=== PATIENT | male | born 1965 | race Caucasian/White ===

== ENCOUNTER 2017-12-27 16:15 | Inpatient (IN) | payer MEDICARE, OTHER ==
--- NOTE | 2017-12-27 16:46 | ED PDOC ---
Arrival/HPI - General Chief Complaint: Psychiatric Evaluation Time Seen by Provider: 12/27/17 16:25 Historian: Patient - History of Present Illness Narrative History of Present Illness (Text): 12/27/17 16:4 A 52 year old male, whose past medical history includes schizophrenia, presents to the emergency department complaining of auditory hallucinations. Patient admits to drinking alcohol today. Patient denies any other complaints at this time. PMD: Dr. Ewing Past Medical History - Provider Review Nursing Documentation Reviewed: Yes - Infectious Disease Hx of Infectious Diseases: None - Cardiac Hx Cardiac Disorders: No - Pulmonary Hx Respiratory Disorders: No - Neurological Hx Neurological Disorder: No - Psychiatric Hx Schizophrenia: Yes (non compliant) Hx Substance Use: No - Anesthesia Hx Anesthesia: No Family/Social History - Physician Review Nursing Documentation Reviewed: Yes Family/Social History: No Known Family HX Smoking Status: Current Some Days Smoker Hx Alcohol Use: Yes Frequency of alcohol use: Daily Hx Substance Use: No Allergies/Home Meds Allergies/Adverse Reactions: Allergies No Known Allergies Allergy (Verified 12/27/17 18:49) Home Medications: Home Meds Medication Instructions Recorded Confirmed RX: Haloperidol [Haldol] mg PO DAILY 12/27/17 traZODone [trazODONE HYDROCHLORIDE] 100 mg PO HS 12/27/17 12/27/17 Review of Systems - Physician Review All systems were reviewed & negative as marked: Yes - Review of Systems Constitutional: absent: Fevers Psychiatric: Other (auditory hallucinations) Physical Exam Vital Signs Reviewed: Yes Vital Signs Temp Pulse Resp BP Pulse Ox 12/27/17 16:24 98.6 F 92 H 18 146/100 H 98 Temperature: Afebrile Blood Pressure: Normal Pulse: Regular Respiratory Rate: Normal Appearance: Positive for: Well-Appearing, Non-Toxic, Comfortable Pain Distress: None Mental Status: Positive for: Alert and Oriented X 3 - Systems Exam Head: Present: Atraumatic, Normocephalic Pupils: Present: PERRL Extroacular Muscles: Present: EOMI Conjunctiva: Present: Normal Mouth: Present: Moist Mucous Membranes Neck: Present: Normal Range of Motion Respiratory/Chest: Present: Clear to Auscultation, Good Air Exchange. No: Respiratory Distress, Accessory Muscle Use Cardiovascular: Present: Regular Rate and Rhythm, Normal S1, S2. No: Murmurs Abdomen: No: Tenderness, Distention, Peritoneal Signs Back: Present: Normal Inspection Upper Extremity: Present: Normal Inspection. No: Cyanosis, Edema Lower Extremity: Present: Normal Inspection. No: Edema Neurological: Present: GCS=15, CN II-XII Intact, Speech Normal Skin: Present: Warm, Dry, Normal Color. No: Rashes Psychiatric: Present: Alert, Oriented x 3, Normal Insight, Normal Concentration Medical Decision Making ED Course and Treatment: 12/27/17 16:45 Impression: 52 year old male with auditory hallucinations. Physical exam is benign. Plan: -- EKG -- Chest X-ray -- Labs -- Urinalysis -- Reassess and disposition Progress Notes: EKG: Ordered, reviewed, and independently interpreted the EKG. Rate : 87 BPM Rhythm : NSR Interpretation : No ST-segment elevations or depressions, no T-wave inversions, normal intervals. Comparison : No previous EKG for comparison. 12/27/17 17:45 discussed with pmd. pt noted to be with mild tremors librium given. prefers medical admission will observe for etoh w/d. 12/28/17 07:41 - RAD Interpretation Radiology Orders: 12/27/17 16:39 CHEST PORTABLE [RAD] Stat - Scribe Statement The provider has reviewed the documentation as recorded by the Deneenibailin Adams Provider Scribe Attestation: All medical record entries made by the Scribe were at my direction and personally dictated by me. I have reviewed the chart and agree that the record accurately reflects my personal performance of the history, physical exam, medical decision making, and the department course for this patient. I have also personally directed, reviewed, and agree with the discharge instructions and disposition. Disposition/Present on Arrival - Present on Arrival Any Indicators Present on Arrival: No History of DVT/PE: No History of Uncontrolled Diabetes: No Urinary Catheter: No History of Decub. Ulcer: No History Surgical Site Infection Following: None - Disposition Have Diagnosis and Disposition been Completed?: Yes Diagnosis: Schizophrenia, Hepatitis, Alcohol withdrawal Disposition: HOSPITALIZED Disposition Time: 16:00 Patient Problems: Current Active Problems Problem Status Onset Alcohol intoxication Acute Hepatitis Acute Schizophrenia Acute Condition: STABLE
[2017-12-27 16:47] LABS: BASO # 0.01 K/mm3 (0.0-2.0); BASO % 0.1 % (0.0-3.0); EOS % 0.5 % (1.5-5.0); GRAN # 5.66 (1.4-6.5); GRAN % 73.7 % (50.0-68.0); HEMOGLOBIN 16.1 g/dL (14.0-18.0); LYMPH # 0.9 (1.2-3.4); LYMPH % 11.8 % (22.0-35.0); MEAN CORPUSCULAR HEMOGLOBIN 33.4 pg (25.0-35.0); MEAN CORPUSCULAR HGB CONC 35.5 g/dl (31.0-37.0); MEAN PLATELET VOLUME 11.3 fl (7.0-11.0); MONO # 1.1 (0.1-0.6); MONO % 13.9 % (1.0-6.0); RBC 4.82 10^6/uL (3.5-6.1); WHITE BLOOD COUNT 7.7 10^3/uL (4.5-11.0)
[2017-12-27 17:01] LABS: ACETAMINOPHEN < 10.0 ug/ml (10.0-20.0); SALICYLATE < 1 mg/dL (2.0-20.0)
[2017-12-27 17:03] LABS: ALB/GLOB RATIO 1.1 (1.1-1.8); ALBUMIN 4.3 g/dL (3.0-4.8); ALT/SGPT 104 U/L (7-56); AST/SGOT 116 U/L (17-59); BLOOD UREA NITROGEN 3 mg/dL (7-21); GFR NON-AFRICAN AMERICAN > 60
--- NOTE | 2017-12-27 17:12 | RAD ---
Date of service: 12/27/2017 HISTORY: psych COMPARISON: No prior. FINDINGS: LUNGS: The lungs are well inflated and clear. PLEURA: No pleural effusions or pneumothorax. CARDIOVASCULAR: The heart is normal in size. No aortic atherosclerotic calcification present. OSSEOUS STRUCTURES: Within normal limits for the patient's age. VISUALIZED UPPER ABDOMEN: Normal. OTHER FINDINGS: None. IMPRESSION: No active pulmonary disease.
[2017-12-27 18:01] LABS: PH,URINE 6.5 (4.7-8.0); URINE BILIRUBIN NEGATIVE (NEGATIVE); URINE BLOOD NEGATIVE (NEGATIVE); URINE GLUCOSE (UA) NEGATIVE (NEGATIVE); URINE LEUKOCYTE ESTERASE NEGATIVE Leu/uL (NEGATIVE); URINE PROTEIN NEGATIVE mg/dL (<30 mg/dL); URINE UROBILINOGEN 0.2 E.U./dL (<1 E.U./dL)
[2017-12-27 18:02] LABS: URINE APPEARANCE CLEAR (CLEAR); URINE COLOR LIGHT YELLOW (YELLOW)
[2017-12-27 18:18] LABS: BARBITURATES, UR NEGATIVE (NEGATIVE)
[2017-12-27 18:38] LABS: BENZODIAZEPINES, UR NEGATIVE (NEGATIVE); OPIATES, UR NEGATIVE (NEGATIVE); PHENCYCLIDINE, UR NEGATIVE (NEGATIVE)
[2017-12-27] MEDS ORDERED: Multivitamin (MVI) 10 ML, Thiamine 100 MG, Folic Acid 1 MG in Sodium Chloride 0.9% 1,00... IV ONE (19:24)
[2017-12-27 20:49] VITALS: BMI 33.3
[2017-12-27] MEDS ORDERED: Pneumococcal 23-Valent Vaccine IM ONE (20:49)
[2017-12-27] MEDS ORDERED: Influenza Vaccine 60 mcg/0.5 mL SYR (4YR UP) IM ONE (20:49)
[2017-12-28] MEDS ORDERED: DiphenhydrAMINE 50 mg/ml Inj IVP ONE (00:21)
[2017-12-28 05:47] LABS: TROPONIN I < 0.01 ng/mL
[2017-12-28 05:52] LABS: ALB/GLOB RATIO 1.1 (1.1-1.8); ALBUMIN 3.6 g/dL (3.0-4.8); ALT/SGPT 105 U/L (7-56); AST/SGOT 105 U/L (17-59); BLOOD UREA NITROGEN 6 mg/dL (7-21); CALCIUM 8.8 mg/dL (8.4-10.5); GFR NON-AFRICAN AMERICAN > 60
[2017-12-28] MEDS: Pantoprazole 20 mg EC Tab PO SCH (06:35)
[2017-12-28 08:21] LABS: HDL CHOLESTEROL 100 mg/dL (29-60)
[2017-12-28 08:22] LABS: IRON 196 ug/dL (45-180)
[2017-12-28 08:32] LABS: % IRON SATURATION 71 % (20-55); LDL CHOLESTEROL 63 mg/dL (0-129); TOTAL IRON BINDING CAPACITY 275 ug/dL (261-462)
--- NOTE | 2017-12-28 09:51 | CARD ---
APPROVED REPORT Date of service: 12/27/2017 EKG Measurement Heart [id number] [id number] <Conclusion> Normal sinus rhythm Normal ECG
--- NOTE | 2017-12-28 10:14 | CARD ---
APPROVED REPORT Date of service: 12/28/2017 EKG Measurement Heart [id number] [id number] <Conclusion> Normal sinus rhythm Mild ST elevation lead 1. Suggest clinical correlation.
[2017-12-28 12:38] LABS: FOLATE > 20.0 ng/mL
--- NOTE | 2017-12-28 14:20 | HP ---
12/27/17 CHIEF COMPLAINT: Hallucinations, delusions, fatigue, tired. HISTORY OF PRESENT ILLNESS: The patient is a 52-year-old, my private patient, who has a past medical history of schizophrenia, was drinking alcohol actually. According to sister, he went to [facility] a couple of days ago to get help, but technology that he has active auditory hallucinations and delusions,and feeling very fatigued and tired. He wants to quit drinking. The patient came to emergency room with the drinking problem. The patient denies any other complaints, no fever, no chills, no nausea, vomiting, or diarrhea, no hematuria, no hematochezia. We admitted the patient, started on Librium and Ativan, seen by psychiatrist. PAST MEDICAL HISTORY: Schizophrenia, noncompliant. FAMILY HISTORY: Father and mother, noncontributory. HABITS: Never smoked. No drugs. Ethanol, yes. HOME MEDICATIONS: Reviewed by me, no medications. ALLERGIES: THE PATIENT IS NOT ALLERGIC WITH ANY MEDICATIONS. REVIEW OF SYSTEMS: The patient was seen and examined at the bedside, looking comfortable, started to get anxious, fatigued and tired. No fever. No chills. No nausea, vomiting, or diarrhea. No hematuria or hematochezia. No swelling of the legs. No chest pain. No palpitations. PHYSICAL EXAMINATION: VITAL SIGNS: Temperature 98.6, pulse 92, respiratory rate 18, blood pressure 146/100, pulse oximetry 98. HEENT: Head normocephalic and atraumatic. Eyes, PERRLA. Extraocular muscles intact. Conjunctivae clear. Nose patent. Mucous membranes are moist. NECK: Supple. No carotid bruit. No JVD or thyromegaly. CHEST: Bilaterally symmetrical. HEART: S1 and S2 positive. LUNGS: Clear to auscultation. ABDOMEN; Soft and nontender. No organomegaly. EXTREMITIES: No edema. No cyanosis. NEUROLOGIC: The patient is awake and alert. Moving all four extremities. No focal deficits. LABORATORY DATA: Alcohol level is 185. White blood cell count 7.7, hemoglobin 15.1, hematocrit 35.3, and platelets 110. Sodium 136, potassium 4.0, BUN 20 and creatinine 0.8. AST 115 and ALT 104. ASSESSMENT AND PLAN: The patient is a 52-year-old male with thrombocytopenia; hypoalbuminemia; abnormal liver function tests, abnormal liver function tests could be due to alcohol and he should be checked for hepatitis; ethanol abuse; history of hallucinations; delusions; schizophrenia with alcohol addiction. We will call Psychiatry. Repeat labs. We will follow up. Gi Ewing MD MTDAlec
[2017-12-28 18:25] LABS: TROPONIN I < 0.01 ng/mL
[2017-12-28] MEDS: Folic Acid 1 MG, Thiamine 100 MG, Multivitamin (MVI) 10 ML in Dextrose 5% In Water 1,00... IV SCH (21:39)
--- NOTE | 2017-12-28 23:24 | PN ---
DATE: 12/28/2017 SUBJECTIVE: The patient is a 52-year-old male. The patient was seen and examined at the bedside on 12/28/2017. Looking comfortable except tremulous. Early in the morning, he complained about chest pain and abdominal pain, but when I did examination, pain was gone. PHYSICAL EXAMINATION: VITAL SIGNS: Temperature 97.9, pulse 87, blood pressure 129/89, pulse oximetry noted . HEENT: Head: Normocephalic and atraumatic. Eyes: PERRLA. Extraocular muscles intact. Conjunctivae clear. Nose patent. Mucous membranes are moist. NECK: Supple. No carotid bruit, JVD, or thyromegaly. CHEST: Bilaterally symmetrical. HEART: S1 and S2 positive. LUNGS: Clear to auscultation. ABDOMEN: Soft. Bowel sounds positive. No organomegaly. EXTREMITIES: No edema. No cyanosis. NEUROLOGIC: The patient is awake and alert. Moving all four extremities. No focal deficits. MEDICATIONS: Ativan, Cogentin, trazodone, Haldol, Librium, and Protonix. LABORATORY DATA: White blood cell 7.7, hemoglobin 15.1, hematocrit 45.3, platelets 101. Sodium 137, potassium 3.6, BUN 6, creatinine 0.8, glucose 98. ASSESSMENT AND PLAN: Mr. Sang Saucedo is a 52-year-old male with leukopenia; hyperchloremia; abnormal liver function test, trending down; came with ethanol abuse; history of schizophrenia; very noncompliant; history of drinking; hypoalbuminemia; still hallucinating and delusional. Psychiatry is on the case. Plan to prevent delirium tremens. Gastric and deep venous thrombosis prophylaxes. Repeat labs. We will follow up. Gi Ewing MD MTDD
[2017-12-29 01:03] LABS: TROPONIN I < 0.01 ng/mL
[2017-12-29 04:37] VITALS: RESP 20
[2017-12-29] MEDS: Pantoprazole 20 mg EC Tab PO SCH (06:08)
[2017-12-29] MEDS: Folic Acid 1 MG, Thiamine 100 MG, Multivitamin (MVI) 10 ML in Dextrose 5% In Water 1,00... IV SCH ×2 (07:02→17:44)
[2017-12-29 07:27] LABS: HEMOGLOBIN 15.9 g/dL (14.0-18.0); MEAN CELL VOLUME 96.5 fl (80.0-105.0); MEAN CORPUSCULAR HEMOGLOBIN 32.9 pg (25.0-35.0); MEAN PLATELET VOLUME 12.1 fl (7.0-11.0); RBC 4.84 10^6/uL (3.5-6.1); RED CELL DISTRIBUTION WIDTH 14.5 % (11.5-14.5); WHITE BLOOD COUNT 6.5 10^3/uL (4.5-11.0)
[2017-12-29 08:31] LABS: BLOOD UREA NITROGEN 13 mg/dL (7-21); CALCIUM 9.2 mg/dL (8.4-10.5); GFR NON-AFRICAN AMERICAN > 60
--- NOTE | 2017-12-29 09:34 | CP.PCM.CON ---
<Galdino Alvarado - Last Filed: 12/29/17 11:53> History of Present Illness - History of Present Illness History of Present Illness: PGY-2 GI consult note for Dr Stauffer Mr Saucedo is a 52 year old female with a PMHx of schizophrenia (non-compliant with medications) who presented to the ED for active auditory hallucinations, delusions and fatigue. The patient had been drinking alcohol every day for the past 4 months - he stated he drinks 6 beers per day. He's had diarrhea for the past few days (no blood). He stated there are plans for him to go to rehab after he leaves here. The patient denied fever, chills, nausea, emesis. PMD: Dr. Ewing PMHx: schizophrenia (non-compliant with medications) PSHx: left knee surgery for torn tendon SocialHx: smokes 1/2 pack per day, 6 beers daily for past 4 months, denies illicits, Allergies: NKA FamHx: denies hx of colon cancer Review of Systems - Constitutional Constitutional: absent: Chills, Fever - EENT Eyes: absent: Change in Vision - Cardiovascular Cardiovascular: Chest Pain at Rest - Respiratory Respiratory: absent: Cough - Gastrointestinal Gastrointestinal: Abdominal Pain. absent: Change in Bowel Habits, Diarrhea - Genitourinary Genitourinary: absent: Dysuria - Musculoskeletal Musculoskeletal: Back Pain - Hematologic/Lymphatic Hematologic: absent: Easy Bleeding Past Patient History - Infectious Disease Hx of Infectious Diseases: None - Past Social History Smoking Status: Current Some Days Smoker - CARDIAC Hx Cardiac Disorders: No - PULMONARY Hx Respiratory Disorders: No - NEUROLOGICAL Hx Neurological Disorder: No - HEENT Hx HEENT Problems: No - RENAL Hx Chronic Kidney Disease: No - ENDOCRINE/METABOLIC Hx Endocrine Disorders: No - HEMATOLOGICAL/ONCOLOGICAL Hx Blood Disorders: No - INTEGUMENTARY Hx Dermatological Problems: No - MUSCULOSKELETAL/RHEUMATOLOGICAL Hx Musculoskeletal Disorders: Yes (L KNEE ARTHROSCOPY) Hx Falls: Yes Hx Unsteady Gait: Yes (CANE) - GASTROINTESTINAL Hx Gastrointestinal Disorders: No - GENITOURINARY/GYNECOLOGICAL Hx Genitourinary Disorders: No - PSYCHIATRIC Hx Schizophrenia: Yes (non compliant) Hx Substance Use: No - SURGICAL HISTORY Hx Surgeries: Yes (L KNEE ARHTROSCOPIC SX.) - ANESTHESIA Hx Anesthesia: No Meds Allergies/Adverse Reactions: Allergies Allergy/AdvReac Type Severity Reaction Status Date / Time No Known Allergies Allergy Verified 12/27/17 18:49 - Medications Medications: Current Medications Benztropine Mesylate (Cogentin) 1 mg PO HS [facility] Last Admin: 12/28/17 21:38 Dose: 1 mg Chlordiazepoxide (Librium) 25 mg PO Q8 [facility]; Protocol Last Admin: 12/29/17 06:08 Dose: 25 mg Haloperidol (Haldol) 3 mg PO AMHS [facility]; Protocol Last Admin: 12/28/17 21:40 Dose: 3 mg Folic Acid 1 mg/ Thiamine HCl 100 mg/ Multivitamins/Vitamin C 10 ml/ Dextrose 1,011.2 mls @ 100 mls/hr IV .Q10H7M [facility] Last Admin: 12/29/17 07:02 Dose: 100 mls/hr Lorazepam (Ativan) 1 mg IVP Q6H PRN; Protocol PRN Reason: Anxiety Pantoprazole Sodium (Protonix Ec Tab) 20 mg PO 0600 [facility] Last Admin: 12/29/17 06:08 Dose: 20 mg Thiamine HCl (Vitamin B1 Tab) 100 mg PO DAILY [facility] Trazodone HCl (Desyrel) 50 mg PO HS [facility] Last Admin: 12/28/17 21:39 Dose: 50 mg Physical Exam - Constitutional Appears: Well, Non-toxic, No Acute Distress - Head Exam Head Exam: ATRAUMATIC, NORMAL INSPECTION - Eye Exam Eye Exam: EOMI, Normal appearance, PERRL. absent: Scleral icterus - ENT Exam ENT Exam: Mucous Membranes Moist - Cardiovascular Exam Cardiovascular Exam: REGULAR RHYTHM, +S1, +S2. absent: JVD, Systolic Murmur - GI/Abdominal Exam GI & Abdominal Exam: Normal Bowel Sounds, Soft, Tenderness. absent: Distended, Firm, Guarding - Extremities Exam Extremities exam: Positive for: calf tenderness, normal inspection. Negative for: normal capillary refill - Neurological Exam Neurological exam: Alert, Oriented x3 Additional comments: + asterixes - Skin Skin Exam: Normal Color, Warm Results - Vital Signs Recent Vital Signs: Last Vital Signs Temp 97.7 F 12/29/17 06:00 Pulse 65 12/29/17 06:00 Resp 20 12/29/17 06:00 BP 132/92 H 12/29/17 06:00 Pulse Ox 96 12/29/17 06:00 - Labs Result Diagrams: 12/29/17 07:00 12/29/17 07:00 Labs: Laboratory Results - last 24 hr 12/28/17 12/28/17 12/28/17 07:30 07:30 17:35 WBC RBC Hgb Hct MCV MCH MCHC RDW Plt Count MPV Sodium Potassium Chloride Carbon Dioxide Anion Gap BUN Creatinine Est GFR ( Amer) Est GFR (Non-Af Amer) Random Glucose Hemoglobin A1c 5.2 Calcium Lactate Dehydrogenase 445 Total Creatine Kinase 75 Troponin I < 0.01 Vitamin B12 561 Folate > 20.0 TSH 3rd Generation 12/28/17 12/29/17 12/29/17 23:55 07:00 07:00 WBC 6.5 RBC 4.84 Hgb 15.9 Hct 46.7 MCV 96.5 MCH 32.9 MCHC 34.0 RDW 14.5 Plt Count 93 L MPV 12.1 H Sodium 139 Potassium 3.8 Chloride 107 Carbon Dioxide 23 Anion Gap 13 BUN 13 Creatinine 0.9 Est GFR ( Amer) > 60 Est GFR (Non-Af Amer) > 60 Random Glucose 97 Hemoglobin A1c Calcium 9.2 Lactate Dehydrogenase 384 Total Creatine Kinase 63 Troponin I < 0.01 Vitamin B12 Folate TSH 3rd Generation 12/29/17 07:00 WBC RBC Hgb Hct MCV MCH MCHC RDW Plt Count MPV Sodium Potassium Chloride Carbon Dioxide Anion Gap BUN Creatinine Est GFR ( Amer) Est GFR (Non-Af Amer) Random Glucose Hemoglobin A1c Calcium Lactate Dehydrogenase Total Creatine Kinase Troponin I Vitamin B12 Folate TSH 3rd Generation 2.78 Assessment & Plan - Assessment and Plan (Free Text) Plan: Mr Saucedo is a 52 year old female with a PMHx of schizophrenia (non-compliant with medications) who presented to the ED for active auditory hallucinations, delusions and fatigue. The patient had been drinking alcohol prior to arrival. GI has been consulted for elevated LFTs and abdominal pain: Elevated LFTs -patient stated he had a colonoscopy [address] Rasmussen however no records seen in chart -AST/ALT on admission: 116/104 -alcohol level on admission elevated 185 -abdominal pain and elevated LFTs due to recent alcohol ingestion -currently on librium taper -f/u hepatitis panel, lipase Prior GI procedures: -EGD in 07/[address] Lobo - normal esophagus, no duodenum, large amount of food in stomach Case discussed with Dr Stauffer. <Lydia Stauffer V - Last Filed: 12/29/17 22:52> Meds - Medications Medications: Current Medications Benztropine Mesylate (Cogentin) 1 mg PO HS [facility] Last Admin: 12/28/17 21:38 Dose: 1 mg Chlordiazepoxide (Librium) 25 mg PO Q8 [facility]; Protocol Last Admin: 12/29/17 13:45 Dose: 25 mg Folic Acid (Folic Acid) 1 mg PO DAILY [facility] Haloperidol (Haldol) 5 mg PO AMHS [facility]; Protocol Folic Acid 1 mg/ Thiamine HCl 100 mg/ Multivitamins/Vitamin C 10 ml/ Dextrose 1,011.2 mls @ 100 mls/hr IV .Q10H7M [facility] Stop: 12/30/17 00:50 Last Admin: 12/29/17 17:44 Dose: 100 mls/hr Lorazepam (Ativan) 1 mg IVP Q6H PRN; Protocol PRN Reason: Anxiety Last Admin: 12/29/17 17:55 Dose: 1 mg Multivitamins (Thera Tab) 1 tab PO DAILY [facility] Pantoprazole Sodium (Protonix Ec Tab) 20 mg PO 0600 [facility] Last Admin: 12/29/17 06:08 Dose: 20 mg Paroxetine HCl (Paxil) 10 mg PO DAILY [facility] Thiamine HCl (Vitamin B1 Tab) 100 mg PO DAILY [facility] Last Admin: 12/29/17 10:16 Dose: 100 mg Trazodone HCl (Desyrel) 50 mg PO HS [facility] Last Admin: 12/28/17 21:39 Dose: 50 mg Results - Vital Signs Recent Vital Signs: Last Vital Signs Temp 98.7 F 12/29/17 17:39 Pulse 74 12/29/17 17:39 Resp 20 12/29/17 17:39 BP 126/84 12/29/17 17:39 Pulse Ox 95 12/29/17 17:39 - Labs Result Diagrams: 12/29/17 07:00 12/29/17 07:00 Labs: Laboratory Results - last 24 hr 12/28/17 12/29/17 12/29/17 23:55 07:00 07:00 WBC 6.5 RBC 4.84 Hgb 15.9 Hct 46.7 MCV 96.5 MCH 32.9 MCHC 34.0 RDW 14.5 Plt Count 93 L MPV 12.1 H Sodium 139 Potassium 3.8 Chloride 107 Carbon Dioxide 23 Anion Gap 13 BUN 13 Creatinine 0.9 Est GFR ( Amer) > 60 Est GFR (Non-Af Amer) > 60 Random Glucose 97 Calcium 9.2 Lactate Dehydrogenase 384 Total Creatine Kinase 63 Troponin I < 0.01 Amylase Lipase TSH 3rd Generation Hepatitis A IgM Ab Hep Bs Antigen Hep B Core IgM Ab Hepatitis C Antibody 12/29/17 12/29/17 12/29/17 07:00 07:00 07:00 WBC RBC Hgb Hct MCV MCH MCHC RDW Plt Count MPV Sodium Potassium Chloride Carbon Dioxide Anion Gap BUN Creatinine Est GFR ( Amer) Est GFR (Non-Af Amer) Random Glucose Calcium Lactate Dehydrogenase Total Creatine Kinase Troponin I Amylase 63 Lipase 133 TSH 3rd Generation 2.78 Hepatitis A IgM Ab Negative Hep Bs Antigen Negative Hep B Core IgM Ab Negative Hepatitis C Antibody Negative Attending/Attestation - Attestation I have personally seen and examined this patient.: Yes I have fully participated in the care of the patient.: Yes I have reviewed all pertinent clinical information: Yes Notes (Text): This is an addendum to GI consult report dictated by the Steward/Stewardess Room.The patient was seen and evaluated earlier. Medical records, lab studies, imagings were reviewed. Last 24 hours events reviewed. Agreed with the above treatment plan as outlined in Steward/Stewardess Room 's notes with the addition of the following Patient feels slightly better Abdomen soft Minimal tenderness in epigastric area on deep palpation Long history of alcohol use will followup LFT and hb Advised to avoid alcohol 12/29/17 22:50
[2017-12-29 11:01] LABS: AMYLASE 63 U/L (35-125); LIPASE 133 U/L (23-300)
--- NOTE | 2017-12-29 12:21 | CON ---
DATE OF CONSULTATION: 12/28/2016 HISTORY OF PRESENT ILLNESS: The patient is a 52-year-old single male with a history of depression, hallucinations, alcohol dependency, prior admission at [facility] about a year ago, currently in treatment with Dr. Martinez for psychiatric symptoms and prescribed trazodone and Haldol, unknown doses, who is admitted to the medical floor after he presented to the ER complaining of auditory hallucinations in context of continued drinking. PSYCHIATRIC HISTORY: The patient reported continued hallucinations on the unit as well as depression. Specifically, he indicated that he was hearing voices that stated they are going to kill him. He has been restless and anxious on the unit and appears to be anxious and depressed when I visited with him at bedside this morning. The patient is oriented to month and year and location and circumstances. He admits to drinking about six beers daily and has a history of withdrawal DTs. However, the patient does indicate that he hallucinates whether he is in withdrawal or intoxicated. The patient also indicates that he has been compliant with his medications prescribed by Dr. Martinez, which include trazodone and Haldol, however, does not know the dosage or the frequency. He has been depressed because of his drinking; however, he denies any other stressor at this time. Denies any drug use. Endorses low energy, fatigue, helplessness, hopelessness and increased suicidal thoughts in the past, but denies having any active thoughts at this time. He is interested in a psychiatric admission once he is medically cleared. He has been calm and cooperative with staff members thus far and then generally remains predictable in this regard. Responses are consistent and generally coherent and he does not appear to respond to internal stimuli during my questioning and does not appear to be overly paranoid either. Insight and judgment are considered to be fair. Vital signs and labs reviewed by the provider. RELEVANT PSYCHIATRIC MEDICATIONS: The only medication started by the patient appears to be Librium 25 mg every 8 hours and Ativan 0.5 mg IV every 6 hours p.r.n. PSYCHIATRIC HISTORY: The patient reports that he was hospitalized at [facility] a year ago for similar symptoms. He reports a history of about seven prior psych hospitalizations and prior suicides, but however does not provide any more details. The patient reports that he has been seeing a psychiatrist, Dr. Martinez, in [place] and being prescribed trazodone and Haldol and reports compliance, however, does not know the dose or frequency. SOCIAL HISTORY: The patient was born and raised in [place]. He is single. He has 3 kids. He lives by himself. He does not work because of disability. He has a long history of alcoholism and currently is being . Denies any drug abuse. Does have a history of withdrawal tremors. IMPRESSION: Major depressive disorder; psychotic symptoms, affective; alocohol use disorder, severe; psychotic disorder. RECOMMENDATIONS: At this time, I will start trazodone for him 50 mg h.s. to help with sleep and Haldol for him at 3 mg a.m. and h.s. We will continue with Ativan and Librium, already written for the patient. Psychiatry will continue to follow up the patient. He is going to find himself into the psychiatry unit once he is medically cleared. Brook Stewart MD
--- NOTE | 2017-12-29 17:14 | CON ---
DATE: 12/29/2017 CARDIOLOGY CONSULTATION HISTORY: The patient is a 52-year-old male, who presented with chest pain, abdominal pain, and diffuse body aches after an alcoholic binge. PAST MEDICAL HISTORY: The patient's past medical history is notable for history of active smoker. In addition, he has a history of schizophrenia, in which he is questionably compliant with his medications. No previous cardiac history is noted. Currently, the patient has no acute symptoms. He denies shortness of breath. SOCIAL HISTORY: He is an active smoker. REVIEW OF SYSTEMS: A 14-point review of systems does not add any additional symptoms than above. PHYSICAL EXAMINATION: VITAL SIGNS: Blood pressure is 132/92, heart rate is in the 60s. NECK: Negative JVD. LUNGS: Without rales. HEART: Reveals S1, S2. EXTREMITIES: Without edema. LABORATORY DATA: Reveals an EKG that is unremarkable. Troponins are negative x2. BUN and creatinine are unremarkable. His hemoglobin is 15.9. IMPRESSION: 1. Atypical chest pain associated with abdominal pain. 2. Alcoholic binge. 3. History of schizophrenia. 4. Probable chronic obstructive pulmonary disease. He is an active smoker. PLAN: Given these findings, there is no evidence for acute coronary syndrome. We will discontinue telemetry today. We will obtain an amylase to rule out pancreatitis as a cause of his symptoms given his alcoholic history. In addition, we will obtain an echocardiogram to evaluate LV function. Caleb Cochran MD
[2017-12-29 18:29] LABS: HEPATITIS B SURFACE AG Negative (NEGATIVE)
[2017-12-29 18:34] LABS: HEPATITIS A IGM NEGATIVE (NEGATIVE); HEPATITIS B CORE AB NEGATIVE (NEGATIVE)
[2017-12-29 18:46] LABS: HEPATITIS C ANTIBODY NEGATIVE (NEGATIVE)
--- NOTE | 2017-12-29 23:43 | CON ---
DATE: 12/29/2017 HISTORY OF PRESENT ILLNESS: The patient is a 52-year-old male with a history of schizophrenia as well as delusions and alcohol abuse, who is currently being treated medically for alcohol withdrawal in the context of auditory hallucinations. I met with the patient at the bedside yesterday and again this morning. The patient appears to be a little bit more oriented today; he knows the month and the year and he knows his location. He is reporting that his auditory hallucinations have improved since yesterday, since the initiation of Haldol, which he is tolerating very well in the unit. However, he continues to have them and these are paranoid hallucinations, people telling him that they are going to kill him and his family. Of note, he has no thoughts of harming anybody or harming himself, although he is depressed and he reports that he feels hopeless at times. Regarding his hallucinations and his alcohol use, he reports that he has hallucinations outside the context of drinking alcohol and if these are incrementing, then he cannot think anything that makes him better or worse. He does not appear to be responding to internal stimuli, but does appear quite preoccupied during my visit with him this morning and there does appear to be some thought blocking as well. Anxiety seems to be under control. Again, he denies any suicidal thoughts or thoughts to harm others. He does appear a little guarded. He is agreeable to starting an antidepressant as well as continue Trazodone at night and increasing Haldol for persistent hallucinations. Insight and judgment are considered to be fair. Vital signs and labs are reviewed. Relevant medications psychiatrically, Cogentin 1 mg at bedtime, Librium 25 mg p.o. every 8 hours, Haldol 3 mg a.m. and at bedtime, Ativan 1 mg IV every 6 hours p.r.n., and Trazodone 50 mg p.o. at bedtime. IMPRESSION: Alcohol abuse, substance-induced mood disorder, substance-induced psychotic disorder, major depressive disorder that has been moderate to severe with psychotic features, rule out schizoaffective disorder, and improving delirium. RECOMMENDATIONS: 1. We will increase Haldol to 5 mg a.m. and at bedtime with Cogentin 1 mg at bedtime for EPS prophylaxis. If the patient still experiences auditory hallucination, an increase of his medication will likely be beneficial. 2. We will start Paxil 2 mg daily for the patient's bouts of depression. 3. We will continue with Trazodone 50 mg at bedtime to help with depression and also to help with sleep. 4. We will continue with Librium 25 mg p.o. every 8 hours for alcohol withdrawal, plan to taper as tolerated as well as will add Ativan 1 mg IV every 6 hours p.r.n. 5. Psychiatry will continue to follow up with the patient as he is medically stabilized. He is agreeable to sign into the psychiatry unit once he is medically cleared and on a voluntary basis for further psychiatric stabilization and optimization. Brook Stewart MD
--- NOTE | 2017-12-30 03:40 | PN ---
DATE: 12/29/2017 SUBJECTIVE: Patient is a 52-year-old male. Patient was seen and examined at the bedside on 12/29/2017, looking comfortable, but still tremulous. No fever, no chills. No nausea, vomiting, or diarrhea. Just having fatigue and tired. No more chest pain. No hematuria or hematochezia. PHYSICAL EXAMINATION: VITAL SIGNS: Temperature 98.6, blood pressure 130/90, heart rate 60, respiratory rate 20. HEENT: Head normocephalic and atraumatic. Eyes, PERRLA. Extraocular muscles intact. Conjunctivae clear. Nose patent. Mucous membrane moist. NECK: Supple. No carotid bruit. No JVD or thyromegaly. CHEST: Bilaterally symmetrical. HEART: S1, S2 positive. LUNGS: Clear to auscultation. ABDOMEN: Soft. Bowel sounds present. No organomegaly. EXTREMITIES: No edema. No cyanosis. NEUROLOGIC: Patient is awake and alert. Moving all four extremities. No focal deficits. MEDICATIONS: Ativan, Cogentin, trazodone, multivitamins, folic acid, Haldol, Librium, Paxil, Protonix, vitamin B1. LABORATORY DATA: White blood cells 6.5, hemoglobin 15.9, hematocrit 46.7, platelets 93. Sodium 139, potassium 3.9, BUN 13, creatinine 0.9, glucose 97, hemoglobin A1c 5.6, calcium 9.2. ASSESSMENT AND PLAN: Mr. Sang Saucedo, 52-year-old male with history of ethanol abuse, came in the hospital with delirium, hallucinations, and started chest pain, seen by the gas worker. According to him, patient has atypical chest pain associated with abdominal pain, alcoholic binging, history of schizophrenia, probably chronic obstructive pulmonary disease. He is an active smoker. There is no evidence of acute coronary syndrome. Dr. Caleb Cochran discontinued the telemetry. Rule out pancreatitis. He ordered echocardiography to see patient's cardiac workup. Seen by the GI. Patient is very noncompliant with his schizophrenia medication. Still has auditory hallucinations, delusion, and fatigue. Abnormal liver function test. Alcohol level on admission was 185. Abdominal pain may be due to elevated liver function tests due to his alcohol ingestion. Patient is taking tapering dose of Librium and Ativan. Seen by the psychiatrist also. Gastrointestinal and deep vein thrombosis prophylaxes. According to Dr. Brook Stewart, as and when patient will get medically stabilized, they will take patient to the Psychiatry. Actually patient is getting medically stabilized. Repeat labs. We will follow up. Gi Ewing MD
--- NOTE | 2017-12-30 08:31 | CP.PCM.PN ---
<Galdino Alvarado - Last Filed: 12/30/17 10:47> Subjective - Date & Time of Evaluation Date of Evaluation: 12/30/17 Time of Evaluation: 08:28 - Subjective Subjective: PGY-[address] note for Dr Stauffer. Overnight patient was tremulous - ativan was given. This morning patient was resting comfortable. Denied abd pain, nausea, emesis. Tolerating diet. He understood sx due to his alcohol consumption. Objective - Vital Signs/Intake and Output Vital Signs (last 24 hours): Temp Pulse Resp BP Pulse Ox 98.7 F 74 20 126/84 95 12/29/17 17:39 12/29/17 17:39 12/29/17 17:39 12/29/17 17:39 12/29/17 17:39 - Medications Medications: Current Medications Benztropine Mesylate (Cogentin) 1 mg PO HS [facility] Last Admin: 12/29/17 23:56 Dose: 1 mg Chlordiazepoxide (Librium) 25 mg PO Q8 [facility]; Protocol Last Admin: 12/29/17 23:57 Dose: 25 mg Folic Acid (Folic Acid) 1 mg PO DAILY [facility] Haloperidol (Haldol) 5 mg PO AMHS [facility]; Protocol Last Admin: 12/29/17 23:56 Dose: 5 mg Lorazepam (Ativan) 1 mg IVP Q6H PRN; Protocol PRN Reason: Anxiety Last Admin: 12/29/17 17:55 Dose: 1 mg Multivitamins (Thera Tab) 1 tab PO DAILY [facility] Pantoprazole Sodium (Protonix Ec Tab) 20 mg PO 0600 [facility] Last Admin: 12/29/17 06:08 Dose: 20 mg Paroxetine HCl (Paxil) 10 mg PO DAILY [facility] Thiamine HCl (Vitamin B1 Tab) 100 mg PO DAILY [facility] Last Admin: 12/29/17 10:16 Dose: 100 mg Trazodone HCl (Desyrel) 50 mg PO HS [facility] Last Admin: 12/29/17 23:56 Dose: 50 mg - Labs Labs: 12/29/17 07:00 12/29/17 07:00 - Additional Findings Additional findings: - Constitutional Appears: Well, Non-toxic, No Acute Distress - Head Exam Head Exam: ATRAUMATIC, NORMAL INSPECTION - Eye Exam Eye Exam: EOMI, Normal appearance, PERRL. absent: Scleral icterus - ENT Exam ENT Exam: Mucous Membranes Moist - Cardiovascular Exam Cardiovascular Exam: REGULAR RHYTHM, +S1, +S2. absent: JVD, Systolic Murmur - GI/Abdominal Exam GI & Abdominal Exam: Normal Bowel Sounds, Soft, Tenderness. absent: Distended, Firm, Guarding - Extremities Exam Extremities exam: Positive for: calf tenderness, normal inspection. Negative for: normal capillary refill - Neurological Exam Neurological exam: Alert, Oriented x3 Additional comments: + asterixes - Skin Skin Exam: Normal Color, Warm Assessment and Plan - Assessment and Plan (Free Text) Plan: Mr Saucedo is a 52 year old female with a PMHx of schizophrenia (non-compliant with medications) who presented to the ED for active auditory hallucinations, delusions and fatigue. The patient had been drinking alcohol prior to arrival. GI has been consulted for elevated LFTs and abdominal pain: Elevated LFTs -patient stated he had a colonoscopy [address] Rasmussen however no records seen in chart -LFTs downtrending, Hgb normal -alcohol level on admission elevated 185 -abdominal pain and elevated LFTs due to recent alcohol ingestion -currently on librium taper -hepatitis panel negative -lipase and amylase normal -f/u abdominal ultrasound Prior GI procedures: -EGD in 07/[address] Lobo - normal esophagus, no duodenum, large amount of food in stomach Seen and discussed with Dr Stauffer. <Lydia Stauffer V - Last Filed: 12/31/17 00:40> Objective - Vital Signs/Intake and Output Vital Signs (last 24 hours): Temp Pulse Resp BP Pulse Ox 97.9 F 69 20 137/95 H 94 L 12/30/17 18:00 12/30/17 18:00 12/30/17 18:00 12/30/17 18:00 12/30/17 18:00 - Labs Labs: 12/29/17 07:00 12/29/17 07:00 Attending/Attestation - Attestation I have personally seen and examined this patient.: Yes I have fully participated in the care of the patient.: Yes I have reviewed all pertinent clinical information, including history, physical exam and plan: Yes Notes (Text): This is an addendum to GI followup report dictated by the [employer]. The patient was seen and evaluated earlier. Medical records, lab studies, imagings were reviewed. Last 24 hours events reviewed. Agreed with the above treatment plan as outlined in [employer] 's notes with the addition of the following Patient was strictly advised to avoid alcohol Followup LFT Followup with primary doctor and police patrol lieutenant as per his plan 12/31/17 00:39
[2017-12-30 08:33] VITALS: TEMP 97.9
[2017-12-30] MEDS ORDERED: Multivitamin Therapeutic Tab PO SCH (10:00)
--- NOTE | 2017-12-30 15:36 | US ---
Date of service: 12/30/2017 HISTORY: elevated LFTs; abdominal pain COMPARISON: None. TECHNIQUE: Sonographic evaluation of the abdomen. FINDINGS: LIVER: Measures 16.9 cm. Increased echogenicity of the liver parenchyma. No mass. No intrahepatic bile duct dilatation. GALLBLADDER: Gallbladder is contracted with poor evaluation of the wall. No cholelithiasis or pericholecystic fluid collection is identified. No sonographic Child sign reported. COMMON BILE DUCT: Measures 3.1 mm. No stones. No dilatation. PANCREAS: Unremarkable as visualized. No mass. No ductal dilatation. RIGHT KIDNEY: Measures 10.8cm. Normal echogenicity. No calculus, mass, or hydronephrosis. LEFT KIDNEY: Measures 11.0cm. Normal echogenicity. No calculus, mass, or hydronephrosis. SPLEEN: Normal in size and contour, 10.5 cm. No mass. AORTA: No aneurysmal dilatation. IVC: Unremarkable. OTHER FINDINGS: None. IMPRESSION: Hepatic steatosis. Limited evaluation the gallbladder due to contraction. Remainder of the examination appears unremarkable.
--- NOTE | 2017-12-30 17:18 | CARD ---
APPROVED REPORT Date of service: 12/30/2017 EXAM: Two-dimensional and M-mode echocardiogram with Doppler and color Doppler. INDICATION Chest Pain 2D DIMENSIONS Left Atrium (2D)3.6 (1.6-4.0cm)IVSd1.2 (0.7-1.1cm) LVDd5.0 (3.9-5.9cm)PWd1.1 (0.7-1.1cm) LVDs3.4 (2.5-4.0cm)FS (%) 32.3 % LVEF (%)60.3 (>50%) M-Mode DIMENSIONS Aortic Root3.50 (2.2-3.7cm)Aortic Cusp Exc.1.50 (1.5-2.0cm) Aortic Valve AoV Peak Zxkunhcd045.0cm/Jim Peak GR.5mmHg Mitral Valve MV E Aonzznzu20.3cm/sMV A Gsvthwdg33.3cm/sE/A ratio1.1 TDI E/Lateral E'0.0E/Medial E'0.0 LEFT VENTRICLE The left ventricle is normal size. There is normal left ventricular wall thickness. The left ventricular function is normal. The left ventricular ejection fraction is within the normal range. There is normal LV segmental wall motion. The left ventricular diastolic function is normal. RIGHT VENTRICLE The right ventricle is normal size. There is normal right ventricular wall thickness. The right ventricular systolic function is normal. ATRIA The left atrium size is normal. The right atrium size is normal. AORTIC VALVE The aortic valve is normal in structure. There is trace to mild aortic regurgitation. There is no aortic valvular stenosis. MITRAL VALVE The mitral valve is normal in structure. There is no mitral valve regurgitation noted. There is no mitral valve stenosis. TRICUSPID VALVE The tricuspid valve is normal in structure. There is no tricuspid valve regurgitation noted. There is no tricuspid valve stenosis. PULMONIC VALVE The pulmonary valve is normal in structure. There is trace pulmonic valvular regurgitation. GREAT VESSELS The aortic root is normal in size. The IVC is normal in size and collapses >50% with inspiration. PERICARDIAL EFFUSION There is no pericardial effusion. <Conclusion> The left ventricle is normal size. There is normal left ventricular wall thickness. The left ventricular function is normal. The left ventricular ejection fraction is within the normal range. There is normal LV segmental wall motion. The left ventricular diastolic function is normal. There is trace to mild aortic regurgitation.
--- NOTE | 2017-12-30 17:53 | PN ---
DATE: 12/30/2017 SUBJECTIVE: In short, the patient is 52-year-old male with long history of schizophrenia as well as alcohol abuse who was admitted on the medical side for alcohol withdrawal syndrome. The patient presented to be psychotic and had hallucinations, that is why Psychiatry team was involved. The patient was seen over the weekend by Dr. Stewart. Dr. Stewart started Haldol. The patient was tolerating that medication very well. This specifications writer is taking over. The patient reported that he hears voices telling him to harm himself and others. The patient reported that he does not have any intent or plan to kill himself. The patient reported that he feels depressed and hopeless at times. The patient reported his alcohol withdrawals are little bit better. The patient was medically cleared today. The patient wants to continue treatment and will be transferred to the Psychiatric Inpatient Unit. Previous history reviewed, the patient was discharged from [facility] on 06/2016 on benztropine, Prolixin 10 mg twice a day, trazodone. The patient also was in the emergency room at [facility] on 12/24/2017 and the patient was complaining of hallucinations as well as chest pain. Obviously the patient was not doing that well. VITAL SIGNS: Reviewed. Temperature 97.9, pulse 66, blood pressure 126/85, respiration 20, oxygen saturation is 95. MEDICATIONS: Reviewed. The patient was on Cogentin, which will be continued. The patient was on Librium 25 mg every 8 hours scheduled. He will continue that. The patient is on folic acid. The patient is on haloperidol, but we will hold that medication because the patient has pill-rolling tremor on his right upper extremity. The patient is on Ativan, multivitamins, Protonix, Paxil was started 10 mg daily and trazodone was started by Dr. Stewart, agree with that. LABORATORY DATA: Reviewed. Most recent labs were yesterday. Alcohol level at the time of admission was 185. Had prolonged conversation with Dr. Ewing today. The patient is medically cleared and medical team will be followed up with the patient in the Psychiatric Inpatient Unit. MENTAL STATUS EXAMINATION: The patient presented to be alert, withdrawn, responding to internal stimuli. Poor eye contact. Speech was underproductive. He has no answers only. Thought process seems to be concrete. Thought content, the patient denied thoughts of harming himself or others. The patient reported that he hears voices telling him to harm himself and others. Insight and judgment seems to be improving. Impulses are well controlled. IMPRESSION: As per history, schizophrenia, alcohol use disorder, alcohol withdrawal symptoms, which are better. PLAN: We will transfer the patient to the Psychiatric Inpatient Unit for further evaluation and stabilization. We will discontinue first generation of antipsychotic medication because of side effects and the patient had pill-rolling tremor in his right upper extremity. Seroquel will be started. Librium will be continued. The patient will be transferred to the Psychiatric Inpatient Unit. Should you have any questions give me a call back. July Jenkins MD
[2017-12-30 18:36] VITALS: BP 137/95; PULSE 69; O2SAT 94
--- NOTE | 2017-12-31 14:46 | DS ---
CHIEF COMPLAINT: Hallucinations, delusions, fatigued, tired, tremulous. HISTORY OF PRESENT ILLNESS: Mr. Sang Saucedo is a 52-year-old male with prior medical history of schizophrenia, The patient while drinking and then he decided to quit. He went to [facility] for help, but the patient got discharged from there, went home and started drinking. Then patient's sister called me that he is depressed, active hallucinations and delusional, fatigued and tired. I told her to send the patient to [facility]. We admitted the patient to all psych consultants, tapering dose of Librium given, Ativan given. Echocardiogram done. Chest x-ray done. Echocardiogram done by program review director. Abdominal CAT scan was done. Patient became sober, but still has hallucinations and delusional, on the medical floor one to one attention was given. Patient was on one to one due to safety reasons. Lot of discussion done with Dr. Jenkins. She decided to take the patient and patient transferred to Psych floor for continuity of care. PAST MEDICAL HISTORY: Schizophrenia, noncompliance, history of ethanol abuse. FAMILY HISTORY: Father and mother, noncontributory. HABITS: Never smoked. No drugs. Ethanol, yes. HOME MEDICATIONS: Reviewed by me. ALLERGIES: PATIENT IS NOT ALLERGIC TO ANY MEDICATIONS. REVIEW OF SYSTEMS: The patient was seen and examined at the bedside, looking comfortable, still tremulous, getting Ativan and Librium. Otherwise, no shortness of breath, no fever, no chills, no hematuria, no hematochezia, no swelling of the leg. PHYSICAL EXAMINATION: VITAL SIGNS: Temperature 98.7, pulse 74, respiratory rate 20, blood pressure 126/84, pulse oximetry 95. HEENT: Head: Normocephalic and atraumatic. Eyes: PERRLA. Extraocular muscles are intact. Conjunctivae clear. Nose patent. Mucous membranes are moist. NECK: Supple. No carotid bruit. No JVD or thyromegaly. CHEST: Bilaterally symmetrical. HEART: S1 and S2 positive. LUNGS: Clear to auscultation. ABDOMEN: Soft. Bowel sounds present. No organomegaly. EXTREMITIES: No edema. No cyanosis. NEUROLOGIC: Patient is awake and alert. Moving all four extremities. No focal deficits. MEDICATIONS: Cogentin, Librium, folic acid, Haldol, Ativan, multivitamin, Protonix, Paxil, vitamin B1, trazodone. LABORATORY DATA: White blood cell 6.5, hemoglobin 15.9, hematocrit 46.7, platelets 93. Sodium 139, potassium 8.8, BUN 30, creatinine 0.9, glucose 97. ASSESSMENT AND PLAN: Mr. Saucedo is 52 years old male with thrombocytopenia with history of schizophrenia, noncompliant with medications, came in with active auditory hallucinations, delusions and fatigue. He has a history of drinking problem. GI was consulted because of abnormal liver function tests. Patient had colonoscopy done 3 months ago by . Liver function test is pending. Alcohol at the time of admission was 185. Patient was on a tapering dose of Librium and Ativan. Because of tachycardia, Cardiology consult was called. Echocardiography done by Dr. Staley. There is no pericardial effusion. Left ventricle normal size. I reviewed echocardiography. Seen by the Psychiatry for schizophrenia. Patient approved on the medical floor. Dr. Jenkins got the patient with the Psych, so we will discharge patient to the Psych with followup there as continuity of care. GI prophylaxis. Repeat labs and follow up. Gi Ewing MD MTDAlec
== END 2017-12-30 19:40 | DRG 897 ==
LOC: ED 16:15 → ERH 17:04 → 3RSO 19:04
PROVIDERS: ADMIT Internal Medicine; ATTEND Internal Medicine
DX: F10.239 Alcohol dependence with withdrawal, unspecified (principal); Y90.6 Blood alcohol level of 120-199 mg/100 ml; F20.9 Schizophrenia, unspecified; D69.6 Thrombocytopenia, unspecified; F32.9 Major depressive disorder, single episode, unspecified; Z91.14 Patient's other noncompliance with medication regimen; F19.959 Other psychoactive substance use, unspecified with psychoactive substance-induced psychotic disorder, unspecified; R07.89 Other chest pain; F17.210 Nicotine dependence, cigarettes, uncomplicated; F41.9 Anxiety disorder, unspecified

== ENCOUNTER 2017-12-30 19:49 | Inpatient (IN) | payer MEDICARE, OTHER ==
[2017-12-30 20:59] VITALS: BMI 33.6
[2017-12-30] MEDS ORDERED: Magnesium Hydroxide Susp 30 ml UD PO PRN (21:04)
[2017-12-30] MEDS ORDERED: Alum-Mag Hydrox-Simethicone Susp (30 mL) PO PRN (21:04)
--- NOTE | 2017-12-30 22:18 | PCM.BM ---
<Leeanne Robles - Last Filed: 12/30/17 22:16> Treatment Plan Problems - Problems identified on initial assessmt Auditory hallucination Date Initiated: 12/30/17 Time Initiated: 22:17 Assessment reference: NA Status: Active Medication non adherence Date Initiated: 12/30/17 Time Initiated: 22:17 Assessment reference: NA Status: Active Altered thought process Date Initiated: 12/30/17 Time Initiated: 22:18 Assessment reference: NA Status: Active <July Jenkins - Last Filed: 12/31/17 08:28> - Diagnosis (1) Alcohol use disorder Status: Acute Interventions: 12/31/17 08:28 Monitoring withdrawal symptoms Medical detoxification Pharmacotherapy for alcohol/benzos/opioid dependence Maintaining sobriety Relapse prevention Possible rehabilitation Motivational interviewing 12-step programs: AA meetings (2) Schizophrenia Status: Acute Interventions: 12/31/17 08:29 Psychoeducation/psychotherapy Psychopharmacology/adjustment of medications as needed/ monitoring possible side effects Evaluate pt on daily basis Compliance with medications and follow up appointments Long acting medication if pt is noncompliant with pill form Suicide and homicide risk assessment and prevention, coping strategies, safety plan Relapse prevention Reduction of symptoms Improve functional status Possible assertive community treatment Cognitive behavioral therapy Family involvement Possible social skill training as outpatient <Louisa Ho - Last Filed: 12/31/17 15:19> Family Contact Family involvement: Famliy/SO not involved
[2017-12-31] MEDS: Pantoprazole 20 mg EC Tab PO SCH (06:08)
[2017-12-31 08:04] LABS: GLUCOSE,FASTING 108 mg/dL (65-110); HDL CHOLESTEROL 91 mg/dL (29-60)
[2017-12-31 08:15] LABS: LDL CHOLESTEROL 69 mg/dL (0-129)
[2017-12-31] MEDS: Multivitamin Therapeutic Tab PO SCH (08:51)
--- NOTE | 2017-12-31 12:50 | PCM.PSYCH ---
Initial Psychiatric Evaluation - Initial Psychiatric Evaluation Type of Admission: Voluntary Legal Status: Capacity (patient has capacity to sign consent for treatment) Chief Complaint (in patient's own words): "I hear voices saying to kill myself" Patient's Reaction to Hospitalization: initially pt was admitted to the medical side for evaluation of alcohol withdrawals, pt was seen by psychiatric team for evaluation of psychosis, pt was transferred to the psych unit 12/30/17 uneventfully for evaluation and stabilization of psychosis, command type hallucinations. History of Present Illness and Precipitating Events: Shortly pt is 52yo Male with reported h/o schizophrenia, alcohol use disorder, presents to the emergency department complaining of auditory hallucinations, required medical admission for alcohol withdrawals, pt was seen by psychiatrist manager inspection, pt presented to be psychotic, reported being noncompliant with medications, pt also reported command type hallucinations, required to be transfer to the psychiatric inpatient unit, pt failed outpatient treatment, requires admission/observation/stabilization. pt was seen today at the treatment team meeting, discussed with RNs, treatment team, SW, previous record reviewed. pt presented to be depressed, withdrawn, negative symptoms of psychosis, alogia/avolition/affective flattening, pt had acceptable personal hygiene, fair ADLs. pt was moving slowly, some psychomotor retardation, low volume, underproductive speech. as per RN report pt was very confused over night, psychotic, required PRN meds of IM ativan and Geodon PO, pt was refusing meds, pt required constant redirection and observation. pt was seen at the treatment team meeting today, pt seems to be poor and unreliable historian, pt reported hearing voices "to kill myself and others", pt denied any intent or plan to harm self or others. pt appeared to be guarded, paranoid, withdrawn. pt reported feeling depressed, hopeless and helpless. as per record pt most likely was noncompliant with medications. PES report indicated pt was attending [facility] with , last time was November. long history of drinking problems, reported to smoke about 10 cigarettes a day, counseling provided, nicotine patch offered. Past psych h/o: pt reported more than 17 psych admissions, pt reported h/o one suicidal attempt "years back", pt cut his left wrist, pt has no scars, no sutures required. pt collects ssd for his mental illness. pt was d/c from [facility] 06/17/17 on the following meds: -Prolixin 5 mg by mouth twice a day -Cogentin 1 mg by mouth twice a day -Trazodone 50 mg by mouth daily at bedtime Family h/o: denied Medical h/o: alcohol withdrawals are better, pt still has mild UE shakes. Vitals are stable. in regards of side effects form meds, 12/30/17 pt had pillrolling tremor in UE, haldol and prolixin d/c, started seroquel, tremor is better today. Lab Results 12/31/17 07:30: TSH 3rd Generation 2.15 12/31/17 07:30: Fasting Glucose 108, Triglycerides 94, Cholesterol 177, LDL Cholesterol Direct 69, HDL Cholesterol 91 H Vital Signs Temp Pulse Pulse Resp BP 12/31/17 07:21 99.1 F 97 H 20 125/88 12/31/17 03:50 98.6 F 96 H 20 132/77 12/30/17 22:19 78 18 medications were confirmed by pt's pharmacy [facility] [place] med[place] filled on November 25, 2017, given by celexa 20mg po daily cogentin 1mg po bid trazodone 100mg po daily h/o being on: haldol 6mg daily filled 09/17 mirtazapine 15mg po hs filled 08/18/17 Seroquel 100mg po daily filled 08/11/2017 all meds were given by . The patient failed the outpatient lower level of care: Yes Current Medications: Active Medications Generic Name Dose Route Start Last Admin Trade Name Simónq PRN Reason Stop Dose Admin Acetaminophen 650 mg 12/30/17 21:04 Tylenol 325mg Tab PO Q6H PRN Fever >100.4 F Al Hydrox/Mg Hydrox/Simethicone 30 ml 12/30/17 21:04 Maalox Plus 30 Ml PO DAILY PRN Upset Stomach Benztropine Mesylate 1 mg 12/30/17 22:00 12/31/17 08:52 Cogentin PO 1 mg AMHS ROLAND Administration Chlordiazepoxide 25 mg 12/30/17 22:00 12/31/17 06:09 Librium PO 25 mg Q8 ROLAND Administration Protocol Folic Acid 1 mg 12/31/17 08:00 12/31/17 08:51 Folic Acid PO 1 mg DAILY ROLAND Administration Lorazepam 2 mg 12/30/17 21:04 12/31/17 11:10 Ativan PO 2 mg Q6H PRN Administration Anxiety Protocol Lorazepam 2 mg 12/31/17 01:50 12/31/17 02:02 Ativan IM 2 mg Q6H PRN Administration Anxiety Protocol Magnesium Hydroxide 30 ml 12/30/17 21:04 Milk Of Magnesia PO DAILY PRN Constipation Multivitamins 1 tab 12/31/17 08:00 12/31/17 08:51 Thera Tab PO 1 tab 0800 ROLAND Administration Pantoprazole Sodium 20 mg 12/31/17 06:00 12/31/17 06:08 Protonix Ec Tab PO 20 mg 0600 ROLAND Administration Paroxetine HCl 10 mg 12/31/17 08:00 12/31/17 08:51 Paxil PO 10 mg DAILY ROLAND Administration Quetiapine Fumarate 50 mg 12/31/17 22:00 Seroquel PO HS ROLAND Protocol Quetiapine Fumarate 50 mg 12/31/17 16:00 Seroquel PO BID ROLAND Protocol Thiamine HCl 100 mg 12/31/17 08:00 12/31/17 08:52 Vitamin B1 Tab PO 100 mg DAILY ROLAND Administration Trazodone HCl 50 mg 12/30/17 22:00 12/30/17 21:38 Desyrel PO 50 mg HS ROLAND Administration Ziprasidone 20 mg 12/30/17 21:04 12/31/17 11:09 Geodon Cap PO 20 mg Q6H PRN Administration Agitation Protocol Ziprasidone 20 mg 12/30/17 21:09 Geodon Inj IM Q6 PRN Anxiety Protocol Present on Admission - Present on Admission Any Indicators Present on Admission: No Review of Systems - Review of Systems Systems not reviewed;Unavailable: Acuity of Condition - Constitutional Constitutional: As Per HPI - EENT Eyes: As Per HPI Ears: As Per HPI Nose/Mouth/Throat: As Per HPI - Cardiovascular Cardiovascular: As Per HPI - Respiratory Respiratory: As Per HPI - Gastrointestinal Gastrointestinal: As Per HPI - Genitourinary Genitourinary: As Per HPI - Reproductive: Male Reproductive:Male: As Per HPI - Musculoskeletal Musculoskeletal: As Per HPI - Integumentary Integumentary: As Per HPI - Neurological Neurological: As Per HPI - Psychiatric Psychiatric: As Per HPI - Endocrine Endocrine: As Per HPI - Hematologic/Lymphatic Hematologic: As Per HPI Past Patient History - Past Psychiatric History Previous Treatment History: Inpatient Prior Professional Help: see HPI Prior Psychiatric Treatment: see HPI At what hospital: see HPI Duration: see HPI Nature of Treatment: see HPI Explanation of prior treatment: see HPI - PSYCHIATRIC Hx Psychophysiologic Disorder: Yes Hx Schizophrenia: Yes Hx Substance Use: No - Infectious Disease Hx of Infectious Diseases: None - CARDIAC Hx Cardiac Disorders: No - PULMONARY Hx Respiratory Disorders: No - NEUROLOGICAL Hx Neurological Disorder: No - HEENT Hx HEENT Problems: No - RENAL Hx Chronic Kidney Disease: No - ENDOCRINE/METABOLIC Hx Endocrine Disorders: No - HEMATOLOGICAL/ONCOLOGICAL Hx Blood Disorders: No - INTEGUMENTARY Hx Dermatological Problems: No - MUSCULOSKELETAL/RHEUMATOLOGICAL Hx Musculoskeletal Disorders: Yes (L KNEE ARTHROSCOPY) Hx Falls: Yes Hx Unsteady Gait: Yes (CANE) - GASTROINTESTINAL Hx Gastrointestinal Disorders: No - GENITOURINARY/GYNECOLOGICAL Hx Genitourinary Disorders: No - SURGICAL HISTORY Hx Surgeries: Yes (L KNEE ARHTROSCOPIC SX.) - ANESTHESIA Hx Anesthesia: No - Medical/Surgical History Reviewed & confirmed: by tx Meds Allergies/Adverse Reactions: Allergies Allergy/AdvReac Type Severity Reaction Status Date / Time No Known Allergies Allergy Verified 12/30/17 22:03 Mental Status Examination - Personal Presentation Personal Presentation: Looks stated age - Affect Affect: Constricted, Flat - Motor Activity Motor Activity: Psychomotor Retardation - Reliability in Providing Information Reliability in Providing Information: Poor, due to alteration in thoughts, Poor, due to altered mood, Poor, due to cognitve impairment - Speech Speech: Disorganized - Mood Mood: Depressed - Formal Thought Process Formal Thought Process: Hallucinations, Delusions, Paranoia - Hallucinations/Delusions Hallucinations: Auditory Delusions: Persecution - Cognitive Functions Orientation: Person, Place, Situation Sensorium: Alert Attention/Concentration: Easily distracted Abstract Thinking: [place] Estimate of Intelligence: Below average Judgement: Intact, as evidence by: Insight regarding need for hospitalization - Risk Risk: Diminished functioning - Strength & Assets Inventory Strength & Assets Inventory: Cooperative, Other - Limitations Limitations: Living alone (alcohol abuse, h/o noncompliance with meds) Psychiatric Physical Exam - Physical Exam Reviewed and confirmed: Emergency Department Physical Exam Results - Vital Signs Recent Vital Signs: Last Vital Signs Temp 99.1 F 12/31/17 07:21 Pulse 97 H 12/31/17 07:21 Resp 20 12/31/17 07:21 BP 125/88 12/31/17 07:21 Pulse Ox - Labs Labs: Laboratory Results - last 24 hr 12/31/17 12/31/17 07:30 07:30 Fasting Glucose 108 Triglycerides 94 Cholesterol 177 LDL Cholesterol Direct 69 HDL Cholesterol 91 H TSH 3rd Generation 2.15 - EKG Data EKG Interpreted by: Other (PMD ) - EKG Data Interpretation: Other (mild ST elevation) DSM Plan - DSM 5 DSM 5 Diagnosis: schizophrenia alcohol use disorder - Recommended/Plan of Treatment Treatment Recommendations and Plan of Treatment: Milieu/structure/supportive therapy Medical follow up pt seems to have episodes of confusion (CBC, CMP, UA ordered) PRN meds MVI,thiamine, folic acid Librium was increased 50mg po tid for alcohol withdrawals VS q4hrs PRN ativan seroquel 50mg bid and hs for psychosis paxil d/c prozac for tomorrow SW consultation for discharge plan and social issues Med management (specify the name, doses, plan to titrate or wean it off) Family involvement Follow up on labs Will monitor closely Pt was educated about risk/benefits and alternatives of medications, coping strategies (safety plan, suicide prevention), relapse prevention, importance of follow up with psychiatrist and therapist, stay away from drugs/alcohol/smoking Projected ELOS: 7days Prognosis: guarded Discharge Plan and Discharge Criteria: Pt will be not depressed or manic, will be more hopeful, will be not psychotic or anxious, will be not having thoughts of harming self or others, will be tolerating medications well, will not have major side effects, will be able to function, will not pose threat to self or others. - Tobacco Cessation Tobacco Use Status for the last 30 days: Heavy User(>=5 cigs &/or cigars/pipes daily) Tobacco Use Treatment Practical Counseling Provided: Yes Type of Medication Provided: Nicoderm CQ - Alcohol or Substance Abuse Does the patient have an Alcohol or Substance Abuse Disorder: Yes Initial Psych Certification - Initial Certification I certify that the inpatient psychiatric facility admission was medically necessary for either: Treatment which could reasonbly be expected to improve pt's condition I estimate of hospitalization is necessary for proper treatment of the patient: 7 Unit of Time: Days My plans for post-hospital care for this patient are: IOP/intensive day program rehab dual diagnosis program
[2017-12-31 13:35] LABS: BASO # 0.02 K/mm3 (0.0-2.0); BASO % 0.3 % (0.0-3.0); EOS # 0.1 (0.0-0.7); EOS % 1.3 % (1.5-5.0); GRAN # 4.98 (1.4-6.5); GRAN % 69.6 % (50.0-68.0); HEMOGLOBIN 13.2 g/dL (14.0-18.0); LYMPH # 1.1 (1.2-3.4); LYMPH % 15.1 % (22.0-35.0); MEAN CELL VOLUME 96.8 fl (80.0-105.0); MEAN CORPUSCULAR HEMOGLOBIN 32.8 pg (25.0-35.0); MEAN CORPUSCULAR HGB CONC 33.8 g/dl (31.0-37.0); MEAN PLATELET VOLUME 11.6 fl (7.0-11.0); MONO % 13.7 % (1.0-6.0); RBC 4.03 10^6/uL (3.5-6.1); RED CELL DISTRIBUTION WIDTH 14.7 % (11.5-14.5); WHITE BLOOD COUNT 7.2 10^3/uL (4.5-11.0)
[2017-12-31 13:44] LABS: ALB/GLOB RATIO 1.2 (1.1-1.8); ALBUMIN 3.8 g/dL (3.0-4.8); ALT/SGPT 196 U/L (7-56); AST/SGOT 167 U/L (17-59); BLOOD UREA NITROGEN 13 mg/dL (7-21); CALCIUM 9.2 mg/dL (8.4-10.5); GFR NON-AFRICAN AMERICAN > 60
[2018-01-01] MEDS: Pantoprazole 20 mg EC Tab PO SCH (06:07)
--- NOTE | 2018-01-01 08:50 | CON ---
DATE: 12/31/2017 The patient is 52 years old male. CHIEF COMPLAINT: Abnormal liver function test and ethanol abuse. HISTORY OF PRESENT ILLNESS: Mr. Saucedo is a 52-year-old male with history of schizophrenia, ethanol abuse, abnormal liver function test, has history of getting detoxification in [facility] last year, came to the emergency department of [facility] with hallucinations of auditory and required medical admission for alcohol withdrawals. The patient was admitted, treated by Medical team. Banana bag was given. Thiamine and Ativan were given. Folic acid, Nicoderm patch. Psychiatric consult called. The patient got improved, got out of the withdrawals. Plan was to send the patient to Psychiatry for active hallucinations and delusions, then Psychiatry accepted the patient. I was called to see the patient for medical treatment. PAST MEDICAL HISTORY: Schizophrenia, noncompliant, history of ethanol abuse, abnormal liver function test. FAMILY HISTORY: Father and mother, noncontributory. HABITS: Never smoked. No drugs, no ethanol. HOME MEDICATIONS: Reviewed by me. The patient was noncompliant, not taking. ALLERGIES: PATIENT IS NOT ALLERGIC WITH ANY MEDICATIONS. REVIEW OF SYSTEMS: The patient was seen and examined at the bedside today in his room, anxious. No fevers. No chills. No tachycardia. No headache, no dizziness. No chest pain, no palpitations. Still having active hallucinations. He said that he is hearing voices to kill himself. Tremulous. No fevers, no chills. No hematuria, no hematochezia. PHYSICAL EXAMINATION: VITAL SIGNS: Temperature 97.7, pulse 67, blood pressure 139/93, respiratory rate 18. HEENT: Head normocephalic, atraumatic. Eyes PERRLA. Extraocular muscles intact. Conjunctivae clear. Nose is patent. Mucous membrane is moist. NECK: Supple. No carotid bruit, JVD, or thyromegaly. CHEST: Bilaterally symmetrical. HEART: S1 and S2 positive. LUNGS: Clear to auscultation. ABDOMEN: Soft. Bowel sounds positive. No organomegaly. EXTREMITIES: No edema. No cyanosis. NEUROLOGIC: Patient is awake and alert, moving all four extremities. No focal deficits. LABORATORY DATA: White blood cells 7.2, hemoglobin 13.2, hematocrit 39, platelets 96,000. Sodium 141, potassium 3.9, BUN 13, creatinine 0.9. Glucose 103. AST 167. ALT 196. ASSESSMENT AND PLAN: Mr. Saucedo is a 52-year-old male with anemia, hyperchloremia, abnormal liver function test, RPR nonreactive, history of schizophrenia, depression, ethanol abuse. According to Psychiatry, PEA support, the patient was attending outpatient program with Dr. Martinez, last time was in November. Long history of drinking problems, smoking 10 cigarettes per day. Counseling provided. Nicoderm patch provided. Patient had at least 17 psychiatric admissions. The patient was discharged from [facility] 06/17/2017, on Prolixin, Geodon, trazodone, but he is noncompliant. Labs reviewed by me within normal limits. Continue Ativan. Psychiatry is on the case. Tylenol p.r.n. This is a voluntary admission. The patient has capacity to sign consent for treatment. Gastrointestinal and deep venous thrombosis prophylaxes. Repeat labs. We will follow up. Gi Ewing MD MTDD
[2018-01-01] MEDS: Multivitamin Therapeutic Tab PO SCH (09:51)
--- NOTE | 2018-01-01 14:56 | PCM.PYCHPN ---
Psychiatric Progress Note - Psychiatric Progress Note Patient seen today, length of contact: 35 minutes Patient Chief Complaint: "I feel little better" Problems Identified/Issues Discussed: Suicide/ homicide prevention, past psychiatric h/o, current psychiatric symptoms, medical problems, risk/benefits and alternatives of medications, medications compliance, coping strategies, substance abuse h/o, relapse prevention, importance of follow up with psychiatrist and therapist, discharge plan. Medical Problems: alcohol withdrawals are much better Diagnostic Results: 12/31/17 13:10 12/31/17 13:10 Lab Results 12/31/17 13:10: Sodium 141, Potassium 3.7, Chloride 109 H, Carbon Dioxide 26, Anion Gap 10, BUN 13, Creatinine 0.9, Est GFR ( Amer) > 60, Est GFR (Non- Af Amer) > 60, Random Glucose 103, Calcium 9.2, Total Bilirubin 0.5, AST 167 H D , ALT 196 H, Alkaline Phosphatase 112, Total Protein 7.0, Albumin 3.8, Globulin 3.2, Albumin/Globulin Ratio 1.2 12/31/17 13:10: WBC 7.2, RBC 4.03, Hgb 13.2 L D, Hct 39.0 L, MCV 96.8, MCH 32.8, MCHC 33.8, RDW 14.7 H, Plt Count 96 L, MPV 11.6 H, Gran % 69.6 H, Lymph % (Auto) 15.1 L, [place] % (Auto) 13.7 H, Eos % (Auto) 1.3 L, Baso % (Auto) 0.3, Gran # 4.98 , Lymph # (Auto) 1.1 L, [place] # (Auto) 1.0 H, Eos # (Auto) 0.1, Baso # (Auto) 0.02 12/31/17 07:30: RPR Nonreactive 12/31/17 07:30: TSH 3rd Generation 2.15 12/31/17 07:30: Fasting Glucose 108, Triglycerides 94, Cholesterol 177, LDL Cholesterol Direct 69, HDL Cholesterol 91 H Vital Signs Temp Pulse Pulse Resp BP 01/01/18 07:21 98.0 F 76 20 116/80 12/31/17 18:00 97.7 F 67 18 130/93 H 12/31/17 16:00 117 H 128/76 12/31/17 14:33 99.2 F 102 H 18 128/102 H 12/31/17 12:35 98.2 F 95 H 18 127/82 12/31/17 07:21 99.1 F 97 H 20 125/88 12/31/17 03:50 98.6 F 96 H 20 132/77 12/30/17 22:19 78 18 DSM 5 Symptoms Update: Shortly pt is 52yo Male with reported h/o schizophrenia, alcohol use disorder, presents to the emergency department complaining of auditory hallucinations, required medical admission for alcohol withdrawals, pt was seen by psychiatrist traffic control supervisor, pt presented to be psychotic, reported being noncompliant with medications, pt also reported command type hallucinations, required to be transfer to the psychiatric inpatient unit, pt failed outpatient treatment, requires admission/observation/stabilization. patient was very confused, seems to have withdrawal symptoms, this senior copywriter increase the dose of benzodiazepines yesterday stat lab work was done, patient was started on one-to-one observation on 12/31/2017, as per report overnight patient slept well, no agitation or aggression, will discontinue one-to-one for now. Patient was seen today in his room, patient presented with some psychomotor retardation, laying in bed flat, patient had monotone, low volume, underproductive speech, patient seems to be a poor and unreliable historian, reported that he is still hears voices, telling him to kill himself, patient denied any intent or plan to kill himself. last as needed medications were given at the morning December 31. As per staff today patient presents much better, 8, more visible on the unit, no agitation or aggression. so far patient tolerates medications well, no side effects observed or reported, aims 0, no EPS. Impression: DSM 5 Diagnosis: schizophrenia alcohol use disorder Medication Change: No Medical Record Reviewed: No Consults ordered or reviewed: Medical consult appreciated. see notes for more detailed information Mental Status Examination - Cognitive Function Orientation: Person, Place, Situation Memory: Impaired Attention: Poor Concentration: Poor Association: Loose Fund of Knowledge: Poor - Mood Mood: Depressed, Anxious - Affect Affect: Constricted, Flat - Formal Thought Process Formal Thought Process: Hallucinations, Delusions, Paranoia - Suicidal Ideation Suicidal Ideation: No - Homicidal Ideation Homicidal Ideation: No Goal/Treatment Plan - Goal/Treatment Plan Need for Continued Stay: Remain at risks for inpatient hospitalization, Severe depression anxiety, Discharge may exacerbated symptoms, Failed transitioning, Severe functional impairment Progress Toward Problem(s) and Goals/Treatment Plan: Milieu/structure/supportive therapy Medical follow up pt seems to have episodes of confusion (CBC, CMP, UA ordered) PRN meds MVI,thiamine, folic acid Librium was increased 50mg po tid for alcohol withdrawals VS q4hrs PRN ativan seroquel 50mg bid and hs for psychosis paxil d/c prozac for tomorrow SW consultation for discharge plan and social issues Family involvement Follow up on labs Will monitor closely Pt was educated about risk/benefits and alternatives of medications, coping strategies (safety plan, suicide prevention), relapse prevention, importance of follow up with psychiatrist and therapist, stay away from drugs/alcohol/smoking Estimated Date of D/C: 01/09/18
[2018-01-01 18:37] LABS: URINE BILIRUBIN NEGATIVE (NEGATIVE); URINE BLOOD NEGATIVE (NEGATIVE); URINE GLUCOSE (UA) NEGATIVE (NEGATIVE); URINE LEUKOCYTE ESTERASE NEGATIVE Leu/uL (NEGATIVE); URINE PROTEIN NEGATIVE mg/dL (<30 mg/dL); URINE UROBILINOGEN 0.2 E.U./dL (<1 E.U./dL)
[2018-01-01 18:43] LABS: URINE APPEARANCE CLEAR (CLEAR); URINE COLOR YELLOW (YELLOW)
[2018-01-02] MEDS: Pantoprazole 20 mg EC Tab PO SCH (06:32)
--- NOTE | 2018-01-02 07:14 | PN ---
DATE: 01/01/2018 SUBJECTIVE: The patient is a 52-year-old male. The patient was seen and examined at the bedside on 01/01/2018. Looking comfortable. Tremors are better. Homicidal and suicidal ideation is not much. No fever. No chills. No headache, no dizziness. No chest pain, no palpitations. No hematuria or hematochezia. PHYSICAL EXAMINATION VITAL SIGNS: Temperature 98.0, pulse 78, respiratory rate 20, and blood pressure 116/85. HEENT: Head normocephalic, atraumatic. Eyes PERRLA. Extraocular muscles intact. Conjunctivae clear. Nose is patent. NECK: Supple. No carotid bruit, JVD, or thyromegaly. CHEST: Bilaterally symmetrical. HEART: S1 and S2 positive. LUNGS: Clear to auscultation. ABDOMEN: Soft. Bowel sounds positive. No organomegaly. EXTREMITIES: No edema. No cyanosis. NEUROLOGIC: The patient is awake and alert, moving all four extremities. No focal deficits. LABORATORY DATA: White blood cells 7.2, hemoglobin 13.2, hematocrit 39.0, platelets 96. Sodium 141, potassium 3.7, BUN 13, creatinine 0.9. Glucose 103. ASSESSMENT AND PLAN: Mr. Sang Saucedo is a 52-year-old male with anemia, hyperchloremia, thrombocytopenia, history of ethanol abuse, alcohol, anxiety, history of abnormal liver function test, hypertension, history of schizophrenia, came with auditory hallucination, requiring medical admission for alcohol withdrawals. The patient was seen by the psychiatrist on the medical floor, accepted to transfer the patient to the medical psych floor. Now, the patient is improving very slowly. The patient failed outpatient treatment. Overall, he requires admission, observation or stabilization. Gastrointestinal and deep venous thrombosis prophylaxes. Physical therapy. We will follow up. Gi Ewing MD [facility]
[2018-01-02] MEDS: Multivitamin Therapeutic Tab PO SCH (10:10)
--- NOTE | 2018-01-02 14:00 | PCM.PYCHPN ---
Psychiatric Progress Note - Psychiatric Progress Note Patient seen today, length of contact: 30 minutes Patient Chief Complaint: "I feel little better" Problems Identified/Issues Discussed: Suicide/ homicide prevention, past psychiatric h/o, current psychiatric symptoms, medical problems, risk/benefits and alternatives of medications, medications compliance, coping strategies, substance abuse h/o, relapse prevention, importance of follow up with psychiatrist and therapist, discharge plan. Medical Problems: alcohol withdrawals are much better Diagnostic Results: 12/31/17 13:10 12/31/17 13:10 Lab Results 12/31/17 13:10: Sodium 141, Potassium 3.7, Chloride 109 H, Carbon Dioxide 26, Anion Gap 10, BUN 13, Creatinine 0.9, Est GFR ( Amer) > 60, Est GFR (Non- Af Amer) > 60, Random Glucose 103, Calcium 9.2, Total Bilirubin 0.5, AST 167 H D , ALT 196 H, Alkaline Phosphatase 112, Total Protein 7.0, Albumin 3.8, Globulin 3.2, Albumin/Globulin Ratio 1.2 12/31/17 13:10: WBC 7.2, RBC 4.03, Hgb 13.2 L D, Hct 39.0 L, MCV 96.8, MCH 32.8, MCHC 33.8, RDW 14.7 H, Plt Count 96 L, MPV 11.6 H, Gran % 69.6 H, Lymph % (Auto) 15.1 L, Mower % (Auto) 13.7 H, Eos % (Auto) 1.3 L, Baso % (Auto) 0.3, Gran # 4.98 , Lymph # (Auto) 1.1 L, Mower # (Auto) 1.0 H, Eos # (Auto) 0.1, Baso # (Auto) 0.02 12/31/17 07:30: RPR Nonreactive 12/31/17 07:30: TSH 3rd Generation 2.15 12/31/17 07:30: Fasting Glucose 108, Triglycerides 94, Cholesterol 177, LDL Cholesterol Direct 69, HDL Cholesterol 91 H Vital Signs Temp Pulse Pulse Resp BP 01/01/18 07:21 98.0 F 76 20 116/80 12/31/17 18:00 97.7 F 67 18 130/93 H 12/31/17 16:00 117 H 128/76 12/31/17 14:33 99.2 F 102 H 18 128/102 H 12/31/17 12:35 98.2 F 95 H 18 127/82 12/31/17 07:21 99.1 F 97 H 20 125/88 12/31/17 03:50 98.6 F 96 H 20 132/77 12/30/17 22:19 78 18 Temp Pulse Resp BP Pulse Ox 98.7 F 71 20 101/65 01/02/18 07:14 01/02/18 07:14 01/02/18 07:14 01/02/18 07:14 DSM 5 Symptoms Update: Shortly pt is 52yo Male with reported h/o schizophrenia, alcohol use disorder, presents to the emergency department complaining of auditory hallucinations, required medical admission for alcohol withdrawals, pt was seen by psychiatrist rehabilitation clerk, pt presented to be psychotic, reported being noncompliant with medications, pt also reported command type hallucinations, required to be transfer to the psychiatric inpatient unit, pt failed outpatient treatment, requires admission/observation/stabilization. patient is less confused, was able to hold conversation, pt is off 1:1. pt appeared to be depressed, mask face, no smiling. still has some psychomotor retardation, ambulating with steady, slow gait, patient had monotone, low volume, underproductive speech, patient seems to be a poor and unreliable historian, reported that he is still hears voices, telling him to kill himself, less intense. lAs per staff today patient presents much better, ate, more visible on the unit, no agitation or aggression. so far patient tolerates medications well, no side effects observed or reported, aims 0, no EPS. Impression: DSM 5 Diagnosis: schizophrenia alcohol use disorder Medication Change: Yes (librium decreased, Prozac increased) Medical Record Reviewed: Yes Consults ordered or reviewed: Medical consult appreciated. see notes for more detailed information Mental Status Examination - Cognitive Function Orientation: Person, Place, Situation Memory: Impaired Attention: Poor Concentration: Poor Association: Loose Fund of Knowledge: Poor - Mood Mood: Depressed, Anxious - Affect Affect: Constricted, Flat - Formal Thought Process Formal Thought Process: Hallucinations, Delusions, Paranoia - Suicidal Ideation Suicidal Ideation: No - Homicidal Ideation Homicidal Ideation: No Goal/Treatment Plan - Goal/Treatment Plan Need for Continued Stay: Remain at risks for inpatient hospitalization, Severe depression anxiety, Discharge may exacerbated symptoms, Failed transitioning, Severe functional impairment Progress Toward Problem(s) and Goals/Treatment Plan: Milieu/structure/supportive therapy Medical follow up pt seems to have episodes of confusion (CBC, CMP, UA ordered) PRN meds MVI,thiamine, folic acid Librium decreased 50mg po tid for alcohol withdrawals VS q4hrs PRN ativan seroquel 50mg bid and hs for psychosis paxil d/c prozac 20mg po daily for anxiety and depression SW consultation for discharge plan and social issues Family involvement Follow up on labs Will monitor closely Pt was educated about risk/benefits and alternatives of medications, coping strategies (safety plan, suicide prevention), relapse prevention, importance of follow up with psychiatrist and therapist, stay away from drugs/alcohol/smoking Estimated Date of D/C: 01/09/18
--- NOTE | 2018-01-02 23:34 | PN ---
DATE: 01/02/2018 SUBJECTIVE: The patient is a 52-year-old male. The patient was seen and examined at the bedside. Looking comfortable. No fever. No chills. No hematuria or hematochezia. No headache, no dizziness. No chest pain, no palpitation. PHYSICAL EXAMINATION: VITAL SIGNS: Temperature 98.7, pulse 62, blood pressure 111/78, respiratory rate 20. HEENT: Head normocephalic, atraumatic. Eyes PERRLA. Extraocular muscles intact. Conjunctivae clear. Nose is patent. Mucous membranes moist. NECK: Supple. No carotid bruit, JVD or thyromegaly. CHEST: Bilaterally symmetrical. HEART: S1 and S2 positive. LUNGS: Clear to auscultation. ABDOMEN: Soft. Bowel sounds positive. No organomegaly. EXTREMITIES: No edema. No cyanosis. NEUROLOGIC: The patient is awake and alert, moving all four extremities. No focal deficits. MEDICATIONS: Ativan, Cogentin, trazodone, folic acid, Geodon, Librium, Nicoderm patch, Protonix, Prozac, Seroquel, thiamine. LABORATORY DATA: We do not have recent labs today but I reviewed old labs. ASSESSMENT AND PLAN: Mr. Sang Saucedo is a 52-year-old male with anemia, hyperchloremia, abnormal liver function test, RPR negative, history of ethanol abuse, history of schizophrenia, noncompliant, alcohol withdrawals are much better, auditory and visual hallucinations are better. Psychiatrist is on the case. The patient is in the Psych Department. The patient's confusion is better. Now, he is off one to one. Want to go to [facility]. We will follow up. Gi Ewing MD
[2018-01-03] MEDS: Pantoprazole 20 mg EC Tab PO SCH (07:19)
[2018-01-03 07:23] LABS: HEMOGLOBIN 13.9 g/dL (14.0-18.0); MEAN CELL VOLUME 96.9 fl (80.0-105.0); MEAN CORPUSCULAR HEMOGLOBIN 32.9 pg (25.0-35.0); MEAN CORPUSCULAR HGB CONC 33.9 g/dl (31.0-37.0); MEAN PLATELET VOLUME 11.4 fl (7.0-11.0); RBC 4.23 10^6/uL (3.5-6.1); RED CELL DISTRIBUTION WIDTH 14.3 % (11.5-14.5); WHITE BLOOD COUNT 7.5 10^3/uL (4.5-11.0)
[2018-01-03 07:36] LABS: ALB/GLOB RATIO 1.1 (1.1-1.8); ALBUMIN 3.5 g/dL (3.0-4.8); ALT/SGPT 109 U/L (7-56); AST/SGOT 56 U/L (17-59); BLOOD UREA NITROGEN 15 mg/dL (7-21); CALCIUM 8.6 mg/dL (8.4-10.5); GFR NON-AFRICAN AMERICAN > 60
[2018-01-03] MEDS: Multivitamin Therapeutic Tab PO SCH (09:15)
--- NOTE | 2018-01-03 10:06 | PCM.PYCHPN ---
Psychiatric Progress Note - Psychiatric Progress Note Patient seen today, length of contact: 30 minutes Problems Identified/Issues Discussed: I reviewed assessment and recent notes. Patient is familiar to me from prior interviews when he was on the medical floor. Oriented x3 however he doesn't appear to recognize me though I interviewed him on two occasions. He appears preoccupied, confused and tired. Continues to feel depressed and complains of "voices of people telling me they are going to kill me". Affect is flat and removed. Patient denies any side effects, discomfort or pain at this time and he doesn't appear to be in any physical distress. Staff note that patient seems to be improving. More visible with good appetite. Overall, he still remains withdrawn with minimal spontaneous interactions with others. There were not behavioral issues overnight. Diagnostic Results: schizophrenia alcohol use disorder Medication Change: Yes (librium decreased ) Medical Record Reviewed: Yes Mental Status Examination - Cognitive Function Orientation: Person, Place, Situation Memory: Impaired Attention: Poor Concentration: Poor Association: Loose Fund of Knowledge: Poor - Mood Mood: Depressed, Anxious - Affect Affect: Constricted, Flat - Speech Speech: Soft - Formal Thought Process Formal Thought Process: Hallucinations (endorsed "voices tell me they are going to kill me"), Delusions, Paranoia - Suicidal Ideation Suicidal Ideation: No - Homicidal Ideation Homicidal Ideation: No Goal/Treatment Plan - Goal/Treatment Plan Need for Continued Stay: Remain at risks for inpatient hospitalization, Severe depression anxiety, Discharge may exacerbated symptoms, Failed transitioning, Severe functional impairment Progress Toward Problem(s) and Goals/Treatment Plan: * c/w current tx and plan * No new weekend lab results noted thus far * Librium 50 mg po TID for alcohol withdrawals decreased to q12 today, VSS and noted below: 01/02/18 01/02/18 07:14 16:00 Temperature 98.7 F Pulse Rate 71 62 Respiratory 20 Rate Blood Pressure 101/65 111/78 Estimated Date of D/C: 01/09/18
--- NOTE | 2018-01-03 23:34 | PN ---
DATE: 01/03/2018 SUBJECTIVE: The patient was seen and examined at the bedside on 01/03/2018. Looking comfortable. No nausea or vomiting. No hematuria or hematochezia. No swelling of the legs. No chest pain. No palpitations. No headache. No dizziness. The patient is a very poor historian. Tremors are little bit better. PHYSICAL EXAMINATION: VITAL SIGNS: Temperature 98.7, pulse 71, respiratory rate 20, and blood pressure 101/65. HEENT: Head; normocephalic and atraumatic. Eyes; PERRLA. Extraocular muscles intact. Conjunctivae clear. Nose is patent. Mucous membranes moist. NECK: Supple. No carotid bruit, JVD or thyromegaly. CHEST: Bilaterally symmetrical. HEART: S1 and S2 positive. LUNGS: Clear to auscultation. ABDOMEN: Soft. Bowel sounds present. No organomegaly. EXTREMITIES: No edema. No cyanosis. NEUROLOGIC: The patient is awake and alert. Moving all four extremities. No focal deficits. MEDICATIONS: Reviewed by me. LABORATORY DATA: Reviewed by me. We don't have any recent labs. ASSESSMENT AND PLAN: Mr. Sang Saucedo with history of ethanol abuse, came with tremors, abnormal liver function test, history of schizophrenia, and very noncompliant. He was admitted on the medical floor, then transferred to the psych after stabilization on the , now getting psych medication under the care of Dr. July Jenkins, and improving slowly. Gastrointestinal and deep venous thrombosis prophylaxes. Repeat labs. We will follow up. Gi Ewing MD [facility]
[2018-01-04] MEDS: Multivitamin Therapeutic Tab PO SCH (08:50)
[2018-01-04] MEDS: Pantoprazole 20 mg EC Tab PO SCH (08:51)
--- NOTE | 2018-01-04 10:13 | PCM.PYCHPN ---
Psychiatric Progress Note - Psychiatric Progress Note Patient seen today, length of contact: 30 minutes Problems Identified/Issues Discussed: I reviewed recent notes and patient was interviewed at bedside. He seems a little more alert and focused today but overall still confused and vague during questioning. As mentioned during yesterday's note, patient is familiar to me from prior interviews when he was on the medical floor. He still doesn't appear to recognize me from these interactions but does remember me from yesterday's visit. I agree with nursing, he still seems preoccupied, confused and tired. Patient denies any depression or hallucinationto however on Friday he complained of "voices of people telling me they are going to kill me". Affect is flat and removed. Patient denies any side effects, discomfort or pain at this time and he doesn't appear to be in any physical distress. Overall, patient remains withdrawn with minimal spontaneous interactions with others. He was encouraged by this provider to spend more time on the unit and participate in activities. There were not behavioral issues over the weekend. Diagnostic Results: schizophrenia alcohol use disorder Medication Change: Yes (librium decreased ) Medical Record Reviewed: Yes Mental Status Examination - Cognitive Function Orientation: Person, Place, Situation Memory: Impaired Attention: Poor Concentration: Poor Association: Loose Fund of Knowledge: Poor - Mood Mood: Depressed, Anxious - Affect Affect: Constricted, Flat - Speech Speech: Soft - Formal Thought Process Formal Thought Process: Hallucinations (endorsed "voices tell me they are going to kill me"), Delusions, Paranoia - Suicidal Ideation Suicidal Ideation: No - Homicidal Ideation Homicidal Ideation: No Goal/Treatment Plan - Goal/Treatment Plan Need for Continued Stay: Remain at risks for inpatient hospitalization, Severe depression anxiety, Discharge may exacerbated symptoms, Failed transitioning, Severe functional impairment Progress Toward Problem(s) and Goals/Treatment Plan: * c/w current tx and plan * Appreciate f/u by Dr. Ewing on 01/03/18~to repeat labs and f/u * Librium 50 mg po TID for alcohol withdrawals decreased to q12 on 01/03/2018 and further decreased to 25 mg po q12 on 01/04/18 due to patient's sedation/confusion (appreciate nursing input in this regard), VSS and noted below: Selected Entries 01/03/18 01/03/18 07:34 15:52 Temperature 98.2 F Pulse Rate 69 84 Respiratory 20 Rate Blood Pressure 112/75 119/73 * New weekend lab results noted below: Laboratory Results - last 24 hr 01/03/18 01/03/18 06:30 06:30 WBC 7.5 RBC 4.23 Hgb 13.9 L Hct 41.0 L MCV 96.9 MCH 32.9 MCHC 33.9 RDW 14.3 Plt Count 107 L MPV 11.4 H Sodium 140 Potassium 3.6 Chloride 108 H Carbon Dioxide 25 Anion Gap 11 BUN 15 Creatinine 0.9 Est GFR ( Amer) > 60 Est GFR (Non-Af Amer) > 60 Random Glucose 105 Calcium 8.6 Total Bilirubin 0.4 AST 56 ALT 109 H Alkaline Phosphatase 100 Total Protein 6.8 Albumin 3.5 Globulin 3.2 Albumin/Globulin Ratio 1.1 Estimated Date of D/C: 01/09/18
--- NOTE | 2018-01-05 09:25 | PN ---
DATE: 01/04/2018 SUBJECTIVE: The patient is a 52-year-old male. The patient was seen and examined on the bedside on 01/04/2018. Looking comfortable, but as per nursing staff, the patient is a little more lethargic. The patient was getting Librium 50 mg, I changed it to 25 are better. No fever. No chills. No hematuria, hematochezia. No swelling of the legs. No chest pain. No palpitation. PHYSICAL EXAMINATION: VITAL SIGNS: Temperature 98.2, pulse 69, respiratory rate 19, blood pressure is 119/73. HEENT: Head normocephalic, atraumatic. Eyes PERRLA. Extraocular muscles intact. Conjunctivae clear. Nose patent. Mucous membrane moist. NECK: Supple. No carotid bruit. No JVD. No thyromegaly. CHEST: Bilaterally symmetrical. HEART: S1 and S2 positive. LUNGS: Clear to auscultation. ABDOMEN: Soft. Bowel sounds positive. No organomegaly. EXTREMITIES: No edema. No cyanosis. NEUROLOGICAL: The patient is awake and alert. Moving all 4 extremities. No focal deficits. LABORATORY DATA: Reviewed by me. MEDICATIONS: Reviewed by me. ASSESSMENT AND PLAN: Psychiatrist is on the case. History of abnormal liver function tests, improved. Tapering down of Librium. We will see tomorrow. If Librium is still high, We will follow up. Gi Ewing MD [facility]
[2018-01-05] MEDS: Pantoprazole 20 mg EC Tab PO SCH (11:24)
[2018-01-05] MEDS: Multivitamin Therapeutic Tab PO SCH (11:25)
--- NOTE | 2018-01-05 16:08 | PCM.PYCHPN ---
Psychiatric Progress Note - Psychiatric Progress Note Patient seen today, length of contact: 30 minutes Patient Chief Complaint: "I feel little better" Problems Identified/Issues Discussed: Suicide/ homicide prevention, past psychiatric h/o, current psychiatric symptoms, medical problems, risk/benefits and alternatives of medications, medications compliance, coping strategies, substance abuse h/o, relapse prevention, importance of follow up with psychiatrist and therapist, discharge plan. Medical Problems: alcohol withdrawals are much better Diagnostic Results: 12/31/17 13:10 12/31/17 13:10 Lab Results 12/31/17 13:10: Sodium 141, Potassium 3.7, Chloride 109 H, Carbon Dioxide 26, Anion Gap 10, BUN 13, Creatinine 0.9, Est GFR ( Amer) > 60, Est GFR (Non- Af Amer) > 60, Random Glucose 103, Calcium 9.2, Total Bilirubin 0.5, AST 167 H D , ALT 196 H, Alkaline Phosphatase 112, Total Protein 7.0, Albumin 3.8, Globulin 3.2, Albumin/Globulin Ratio 1.2 12/31/17 13:10: WBC 7.2, RBC 4.03, Hgb 13.2 L D, Hct 39.0 L, MCV 96.8, MCH 32.8, MCHC 33.8, RDW 14.7 H, Plt Count 96 L, MPV 11.6 H, Gran % 69.6 H, Lymph % (Auto) 15.1 L, [place] % (Auto) 13.7 H, Eos % (Auto) 1.3 L, Baso % (Auto) 0.3, Gran # 4.98 , Lymph # (Auto) 1.1 L, [place] # (Auto) 1.0 H, Eos # (Auto) 0.1, Baso # (Auto) 0.02 12/31/17 07:30: RPR Nonreactive 12/31/17 07:30: TSH 3rd Generation 2.15 12/31/17 07:30: Fasting Glucose 108, Triglycerides 94, Cholesterol 177, LDL Cholesterol Direct 69, HDL Cholesterol 91 H Vital Signs Temp Pulse Pulse Resp BP 01/01/18 07:21 98.0 F 76 20 116/80 12/31/17 18:00 97.7 F 67 18 130/93 H 12/31/17 16:00 117 H 128/76 12/31/17 14:33 99.2 F 102 H 18 128/102 H 12/31/17 12:35 98.2 F 95 H 18 127/82 12/31/17 07:21 99.1 F 97 H 20 125/88 12/31/17 03:50 98.6 F 96 H 20 132/77 12/30/17 22:19 78 18 Temp Pulse Resp BP Pulse Ox 98.7 F 71 20 101/65 01/02/18 07:14 01/02/18 07:14 01/02/18 07:14 01/02/18 07:14 DSM 5 Symptoms Update: Shortly pt is 52yo Male with reported h/o schizophrenia, alcohol use disorder, presents to the emergency department complaining of auditory hallucinations, required medical admission for alcohol withdrawals, pt was seen by psychiatrist weatherization technician, pt presented to be psychotic, reported being noncompliant with medications, pt also reported command type hallucinations, required to be transfer to the psychiatric inpatient unit, pt failed outpatient treatment, requires admission/observation/stabilization. patient is less confused, was able to hold conversation. pt appeared to be depressed, but with some improvement. still has some psychomotor retardation, ambulating with steady, slow gait, patient had monotone, low volume, underproductive speech, patient seems to be a poor and unreliable historian, reported that he is still hears voices, telling him to kill himself, less intense. lAs per staff today patient presents much better, ate, more visible on the unit, no agitation or aggression. so far patient tolerates medications well, no side effects observed or reported, aims 0, no EPS. Impression: DSM 5 Diagnosis: schizophrenia alcohol use disorder Medication Change: Yes (librium decreased ) Medical Record Reviewed: Yes Mental Status Examination - Cognitive Function Orientation: Person, Place, Situation Memory: Impaired Attention: Poor Concentration: Poor Association: Loose Fund of Knowledge: Poor - Mood Mood: Depressed, Anxious - Affect Affect: Constricted, Flat - Speech Speech: Soft - Formal Thought Process Formal Thought Process: Hallucinations (endorsed "voices tell me they are going to kill me"), Delusions, Paranoia - Suicidal Ideation Suicidal Ideation: No - Homicidal Ideation Homicidal Ideation: No Goal/Treatment Plan - Goal/Treatment Plan Need for Continued Stay: Remain at risks for inpatient hospitalization, Severe depression anxiety, Discharge may exacerbated symptoms, Failed transitioning, Severe functional impairment Progress Toward Problem(s) and Goals/Treatment Plan: Milieu/structure/supportive therapy Medical follow up pt seems to have episodes of confusion (CBC, CMP, UA ordered) PRN meds MVI,thiamine, folic acid Librium decreased 25mg po bid for alcohol withdrawals VS q4hrs PRN ativan seroquel 50mg bid and hs for psychosis prozac 20mg po daily for anxiety and depression SW consultation for discharge plan and social issues Family involvement Follow up on labs Will monitor closely Pt was educated about risk/benefits and alternatives of medications, coping strategies (safety plan, suicide prevention), relapse prevention, importance of follow up with psychiatrist and therapist, stay away from drugs/alcohol/smoking Estimated Date of D/C: 01/09/18
--- NOTE | 2018-01-06 05:54 | PN ---
DATE: 01/05/2018 SUBJECTIVE: Patient is a 52-year-old male. Patient was seen and examined at the bedside on 01/05/2018, sleepy, arousable. No nausea, vomiting, or diarrhea. No hematuria, no hematochezia. No swelling of legs. No chest pain, no palpitation. Patient is very poor historian. PHYSICAL EXAMINATION: VITAL SIGNS: Temperature 98.5, pulse 68, respiratory rate 20, blood pressure 104/68. HEENT: Head; normocephalic and atraumatic. Eyes; PERRLA. Extraocular muscles intact. Conjunctivae clear. Nose patent. Mucous membranes moist. NECK: Supple. No carotid bruit, JVD, or thyromegaly. CHEST: Bilaterally symmetrical. HEART: S1 and S2 positive. LUNGS: Clear to auscultation. ABDOMEN: Soft. Bowel sounds present. No organomegaly. EXTREMITIES: No edema. No cyanosis. NEUROLOGIC: The patient is awake and alert. Moving all four extremities. No focal deficits. MEDICATIONS: Ativan, Coreg, folic acid, Geodon, Librium, Maalox, milk of magnesia, Nicoderm, Protonix, Prozac, Seroquel, Theravite multivitamins, B1. LABORATORY DATA: We do not have recent labs today, but I reviewed old labs. ASSESSMENT AND PLAN: Mr. Sang Saucedo, 52-year-old male with anemia, thrombocytopenia, hyperchloremia, abnormal liver function test, . Gastrointestinal and deep vein thrombosis prophylaxes. Repeat labs. We will follow up. Gi Ewing MD
[2018-01-06] MEDS: Pantoprazole 20 mg EC Tab PO SCH (06:28)
[2018-01-06] MEDS: Multivitamin Therapeutic Tab PO SCH (09:24)
--- NOTE | 2018-01-06 15:41 | PCM.PYCHPN ---
Psychiatric Progress Note - Psychiatric Progress Note Patient seen today, length of contact: 30 minutes Patient Chief Complaint: "I feel little better" Problems Identified/Issues Discussed: Suicide/ homicide prevention, past psychiatric h/o, current psychiatric symptoms, medical problems, risk/benefits and alternatives of medications, medications compliance, coping strategies, substance abuse h/o, relapse prevention, importance of follow up with psychiatrist and therapist, discharge plan. Medical Problems: alcohol withdrawals are much better Diagnostic Results: 12/31/17 13:10 12/31/17 13:10 Lab Results 12/31/17 13:10: Sodium 141, Potassium 3.7, Chloride 109 H, Carbon Dioxide 26, Anion Gap 10, BUN 13, Creatinine 0.9, Est GFR ( Amer) > 60, Est GFR (Non- Af Amer) > 60, Random Glucose 103, Calcium 9.2, Total Bilirubin 0.5, AST 167 H D , ALT 196 H, Alkaline Phosphatase 112, Total Protein 7.0, Albumin 3.8, Globulin 3.2, Albumin/Globulin Ratio 1.2 12/31/17 13:10: WBC 7.2, RBC 4.03, Hgb 13.2 L D, Hct 39.0 L, MCV 96.8, MCH 32.8, MCHC 33.8, RDW 14.7 H, Plt Count 96 L, MPV 11.6 H, Gran % 69.6 H, Lymph % (Auto) 15.1 L, [place] % (Auto) 13.7 H, Eos % (Auto) 1.3 L, Baso % (Auto) 0.3, Gran # 4.98 , Lymph # (Auto) 1.1 L, [place] # (Auto) 1.0 H, Eos # (Auto) 0.1, Baso # (Auto) 0.02 12/31/17 07:30: RPR Nonreactive 12/31/17 07:30: TSH 3rd Generation 2.15 12/31/17 07:30: Fasting Glucose 108, Triglycerides 94, Cholesterol 177, LDL Cholesterol Direct 69, HDL Cholesterol 91 H Vital Signs Temp Pulse Pulse Resp BP 01/01/18 07:21 98.0 F 76 20 116/80 12/31/17 18:00 97.7 F 67 18 130/93 H 12/31/17 16:00 117 H 128/76 12/31/17 14:33 99.2 F 102 H 18 128/102 H 12/31/17 12:35 98.2 F 95 H 18 127/82 12/31/17 07:21 99.1 F 97 H 20 125/88 12/31/17 03:50 98.6 F 96 H 20 132/77 12/30/17 22:19 78 18 Temp Pulse Resp BP Pulse Ox 98.7 F 71 20 101/65 01/02/18 07:14 01/02/18 07:14 01/02/18 07:14 01/02/18 07:14 DSM 5 Symptoms Update: Shortly pt is 52yo Male with reported h/o schizophrenia, alcohol use di sorder, presents to the emergency department complaining of auditory hallucinations, required medical admission for alcohol withdrawals, pt was seen by psychiatrist pediatric nurse practitioner, pt presented to be psychotic, reported being noncompliant with medications, pt also reported command type hallucinations, required to be transfer to the psychiatric inpatient unit, pt failed outpatient treatment, requires admission/observation/stabilization. patient is less confused, was able to hold conversation, patient has periods of forgetfulness and disorganized behavior, needs constant redirection by staff. pt appeared to be depressed, but with some improvement. still has some psychomotor retardation, ambulating with steady, slow gait, patient had monotone, low volume, underproductive speech, patient seems to be a poor and unreliable historian, reported that he is still hears voices, telling him to kill himself, less intense. physical therapy recommended subacute rehabilitation, Dr. Lockwood will fill all required documents for ADELINE. As per staff today patient presents much better, ate, more visible on the unit, no agitation or aggression. so far patient tolerates medications well, no side effects observed or reported, aims 0, no EPS. Impression: DSM 5 Diagnosis: schizophrenia alcohol use disorder Medication Change: Yes (librium decreased,Seroquel increased) Medical Record Reviewed: Yes Mental Status Examination - Cognitive Function Orientation: Person, Place, Situation Memory: Impaired Attention: Poor Concentration: Poor Association: Loose Fund of Knowledge: Poor - Mood Mood: Depressed, Anxious - Affect Affect: Constricted, Flat - Speech Speech: Soft - Formal Thought Process Formal Thought Process: Hallucinations ("voices are not that intense"), Delusions, Paranoia - Suicidal Ideation Suicidal Ideation: No - Homicidal Ideation Homicidal Ideation: No Goal/Treatment Plan - Goal/Treatment Plan Need for Continued Stay: Remain at risks for inpatient hospitalization, Severe depression anxiety, Discharge may exacerbated symptoms, Failed transitioning, Severe functional impairment Progress Toward Problem(s) and Goals/Treatment Plan: Milieu/structure/supportive therapy Medical follow up pt seems to have episodes of confusion (CBC, CMP, UA ordered) PRN meds MVI,thiamine, folic acid Librium decreased 10mg po bid for alcohol withdrawals seroquel 100mg amhs for psychosis prozac 20mg po daily for anxiety and depression SW consultation for discharge plan and social issues Family involvement Follow up on labs Will monitor closely Pt was educated about risk/benefits and alternatives of medications, coping strategies (safety plan, suicide prevention), relapse prevention, importance of follow up with psychiatrist and therapist, stay away from drugs/alcohol/smoking PT recommended ADELINE Estimated Date of D/C: 01/09/18
--- NOTE | 2018-01-07 05:22 | PN ---
DATE: 01/06/2018 SUBJECTIVE: The patient is a 52-year-old male. The patient was seen and examined at the bedside on 01/06/2018. Looking comfortable. No nausea, vomiting, or diarrhea. No hematuria, no hematochezia. No swelling of the legs. No chest pain. No palpitation. No headache. No dizziness. Tolerating food very well. PHYSICAL EXAMINATION VITAL SIGNS: Temperature 97.7, pulse 70, blood pressure 111/70, and respiratory rate 18. HEENT: Head is normocephalic and atraumatic. Eyes: PERRLA. Extraocular muscles are intact. Conjunctivae clear. Nose patent. Mucous membranes are moist. NECK: Supple. No carotid bruit. No JVD or thyromegaly. CHEST: Bilaterally symmetrical. HEART: S1 and S2 positive. LUNGS: Clear to auscultation. ABDOMEN: Soft. Bowel sounds present. No organomegaly. EXTREMITIES: No edema. No cyanosis. NEUROLOGIC: The patient is awake and alert. Moving all four extremities. No focal deficits.. MEDICATIONS: Ativan, Cogentin, trazodone, folic acid, Geodon, Librium, Maalox, milk of magnesia, Nicoderm, pantoprazole, Prozac, Seroquel, multivitamins, Tylenol, and thiamine. LABORATORY DATA: White blood cells 7.5, hemoglobin 13.9, hematocrit 41.0, and platelets 107. We do not have recent labs today, but I reviewed old labs.. ASSESSMENT AND PLAN: Mr. Sang Saucedo is a 52-year-old male with anemia, hyperchloremia, abnormal liver function test, trending down, RPR negative, history of ethanol abuse, gastritis, was admitted for alcohol withdrawals, is improving, getting tapering dose of Librium and Ativan. The patient has history of schizophrenia, alcohol abuse, came with auditory hallucinations and delusions, required prompt medical admissions then transfer to the Psych floor, the patient was in one to one, now he is improving, no more need of one to one. Repeat labs. We will follow up. Gi Ewing MD [facility] # [id number]
[2018-01-07] MEDS: Pantoprazole 20 mg EC Tab PO SCH (06:38)
[2018-01-07 07:31] LABS: HEMOGLOBIN 14.1 g/dL (14.0-18.0); MEAN CELL VOLUME 97.4 fl (80.0-105.0); MEAN CORPUSCULAR HEMOGLOBIN 32.8 pg (25.0-35.0); MEAN CORPUSCULAR HGB CONC 33.7 g/dl (31.0-37.0); RBC 4.3 10^6/uL (3.5-6.1); RED CELL DISTRIBUTION WIDTH 14.2 % (11.5-14.5); WHITE BLOOD COUNT 6.4 10^3/uL (4.5-11.0)
[2018-01-07 07:36] LABS: BLOOD UREA NITROGEN 13 mg/dL (7-21); GFR NON-AFRICAN AMERICAN > 60
[2018-01-07] MEDS: Multivitamin Therapeutic Tab PO SCH (09:18)
--- NOTE | 2018-01-07 15:12 | PCM.BM ---
<Louisa Ho - Last Filed: 01/07/18 15:12> Treatment Plan Problems - Problems identified on initial assessmt Auditory hallucination Date Initiated: 12/30/17 Time Initiated: 22:17 Assessment reference: NA Status: Active Medication non adherence Date Initiated: 12/30/17 Time Initiated: 22:17 Assessment reference: NA Status: Active Altered thought process Date Initiated: 12/30/17 Time Initiated: 22:18 Assessment reference: NA Status: Active - Milieu Protocol Milieu Narrative: Milieu/structure/supportive therapy Medical follow up pt seems to have episodes of confusion (CBC, CMP, UA ordered) PRN meds MVI,thiamine, folic acid Librium decreased 10mg po bid for alcohol withdrawals seroquel 100mg amhs for psychosis prozac 20mg po daily for anxiety and depression SW consultation for discharge plan and social issues Family involvement Follow up on labs Will monitor closely Pt was educated about risk/benefits and alternatives of medications, coping strategies (safety plan, suicide prevention), relapse prevention, importance of follow up with psychiatrist and therapist, stay away from drugs/alcohol/smoking PT recommended ADELINE Family Contact Family involvement: Family/SO is involved Family contact: Patient agrees to contact Family contact name: Qiana Hickey,sister Family contacted how many times per week?: 2 Discharge/Continuing Care - Treatment Team Participation Patient/Family/SO Statement: Milieu/structure/supportive therapy Medical follow up pt seems to have episodes of confusion (CBC, CMP, UA ordered) PRN meds MVI,thiamine, folic acid Librium decreased 10mg po bid for alcohol withdrawals seroquel 100mg amhs for psychosis prozac 20mg po daily for anxiety and depression SW consultation for discharge plan and social issues Family involvement Follow up on labs Will monitor closely Pt was educated about risk/benefits and alternatives of medications, coping strategies (safety plan, suicide prevention), relapse prevention, importance of follow up with psychiatrist and therapist, stay away from drugs/alcohol/smoking PT recommended ADELINE Treatment Plan Review - Problem Auditory hallucination Time Initiated: :17 Medication non adherence Time Initiated: 22:17 Altered thought process Time Initiated: 22:18 <July Jenkins - Last Filed: 01/07/18 17:28> - Diagnosis (1) Alcohol use disorder Status: Acute Interventions: 01/07/18 17:27 naltrexone was discussed with the patient, patient is on tapering dose of benzodiazepines, patient wants to maintain sobriety, does not want to go to inpatient rehabilitation, patient is willing to go to subacute rehabilitation. (2) Schizophrenia Status: Acute Interventions: 01/07/18 17:28 patient still hears voices, Seroquel increased Overall patient is improving Compliant with the medications
--- NOTE | 2018-01-07 17:33 | PCM.PYCHPN ---
Psychiatric Progress Note - Psychiatric Progress Note Patient seen today, length of contact: 30 minutes Patient Chief Complaint: "I feel little better" Problems Identified/Issues Discussed: Suicide/ homicide prevention, past psychiatric h/o, current psychiatric symptoms, medical problems, risk/benefits and alternatives of medications, medications compliance, coping strategies, substance abuse h/o, relapse prevention, importance of follow up with psychiatrist and therapist, discharge plan. Medical Problems: alcohol withdrawals are much better Diagnostic Results: 12/31/17 13:10 12/31/17 13:10 Lab Results 12/31/17 13:10: Sodium 141, Potassium 3.7, Chloride 109 H, Carbon Dioxide 26, Anion Gap 10, BUN 13, Creatinine 0.9, Est GFR ( Amer) > 60, Est GFR (Non- Af Amer) > 60, Random Glucose 103, Calcium 9.2, Total Bilirubin 0.5, AST 167 H D , ALT 196 H, Alkaline Phosphatase 112, Total Protein 7.0, Albumin 3.8, Globulin 3.2, Albumin/Globulin Ratio 1.2 12/31/17 13:10: WBC 7.2, RBC 4.03, Hgb 13.2 L D, Hct 39.0 L, MCV 96.8, MCH 32.8, MCHC 33.8, RDW 14.7 H, Plt Count 96 L, MPV 11.6 H, Gran % 69.6 H, Lymph % (Auto) 15.1 L, [place] % (Auto) 13.7 H, Eos % (Auto) 1.3 L, Baso % (Auto) 0.3, Gran # 4.98 , Lymph # (Auto) 1.1 L, [place] # (Auto) 1.0 H, Eos # (Auto) 0.1, Baso # (Auto) 0.02 12/31/17 07:30: RPR Nonreactive 12/31/17 07:30: TSH 3rd Generation 2.15 12/31/17 07:30: Fasting Glucose 108, Triglycerides 94, Cholesterol 177, LDL Cholesterol Direct 69, HDL Cholesterol 91 H Vital Signs Temp Pulse Pulse Resp BP 01/01/18 07:21 98.0 F 76 20 116/80 12/31/17 18:00 97.7 F 67 18 130/93 H 12/31/17 16:00 117 H 128/76 12/31/17 14:33 99.2 F 102 H 18 128/102 H 12/31/17 12:35 98.2 F 95 H 18 127/82 12/31/17 07:21 99.1 F 97 H 20 125/88 12/31/17 03:50 98.6 F 96 H 20 132/77 12/30/17 22:19 78 18 Temp Pulse Resp BP Pulse Ox 98.7 F 71 20 101/65 01/02/18 07:14 01/02/18 07:14 01/02/18 07:14 01/02/18 07:14 DSM 5 Symptoms Update: Shortly pt is 52yo Male with reported h/o schizophrenia, alcohol use disorder, presents to the emergency department complaining of auditory hallucinations, required medical admission for alcohol withdrawals, pt was seen by psychiatrist orthodontist, pt presented to be psychotic, reported being noncompliant with medications, pt also reported command type hallucinations, required to be transfer to the psychiatric inpatient unit, pt failed outpatient treatment, requires admission/observation/stabilization. patient was seen today at the treatment team meeting, patient is less confused, was able to hold conversation, patient has periods of forgetfulness and disorganized behavior, needs constant redirection by staff. pt appeared to be depressed, but with some improvement. still has some psychomotor retardation, ambulating with steady, slow gait, patient had monotone, low volume, underproductive speech, reported that he is still hears voices, telling him to kill himself, less intense. patient does not have any agitation or aggression, patient pose no imminent aranda er to self or others, pt requires assistance by saff, PT, needs ADELINE. physical therapy recommended subacute rehabilitation, Dr. Lockwood will fill all required documents for ADELINE. so far patient tolerates medications well, no side effects observed or reported, aims 0, no EPS. Impression: DSM 5 Diagnosis: schizophrenia alcohol use disorder Medication Change: Yes (Seroquel increased) Medical Record Reviewed: Yes Mental Status Examination - Cognitive Function Orientation: Person, Place, Situation Memory: Impaired Attention: Poor (some improvement) Concentration: Poor (improvement) Association: Loose Fund of Knowledge: Poor - Mood Mood: Depressed, Anxious - Affect Affect: Constricted, Flat - Speech Speech: Soft - Formal Thought Process Formal Thought Process: Hallucinations ("voices are not that intense"), Delusions, Paranoia - Suicidal Ideation Suicidal Ideation: No - Homicidal Ideation Homicidal Ideation: No Goal/Treatment Plan - Goal/Treatment Plan Need for Continued Stay: Remain at risks for inpatient hospitalization, Severe depression anxiety, Discharge may exacerbated symptoms, Failed transitioning, Severe functional impairment Progress Toward Problem(s) and Goals/Treatment Plan: Milieu/structure/supportive therapy Medical follow up pt seems to have episodes of confusion (CBC, CMP, UA ordered) PRN meds MVI,thiamine, folic acid Librium decreased 5mg po bid for alcohol withdrawals naltrexone started, risk, benefits, alternatives discussed with the patient seroquel 200mg amhs for psychosis prozac 20mg po daily for anxiety and depression SW consultation for discharge plan and social issues Family involvement Follow up on labs Will monitor closely Pt was educated about risk/benefits and alternatives of medications, coping strategies (safety plan, suicide prevention), relapse prevention, importance of follow up with psychiatrist and therapist, stay away from drugs/alcohol/smoking PT recommended ADELINE Estimated Date of D/C: 01/09/18
--- NOTE | 2018-01-07 20:29 | PCM.BM ---
Treatment Plan Problems - Problems identified on initial assessmt Auditory hallucination Date Initiated: 12/30/17 (01/07/18 STILL ADMITS HEARING VOICES) Time Initiated: : Assessment reference: NA Status: Active Medication non adherence Date Initiated: 12/30/17 Time Initiated: Date resolved: 01/07/18 Assessment reference: NA Status: Active Altered thought process Date Initiated: 12/30/17 (01/08 THOUGHT PROCESS REMAIN POOR) Time Initiated: : Assessment reference: NA Status: Active - Milieu Protocol Milieu Narrative: Milieu/structure/supportive therapy Medical follow up pt seems to have episodes of confusion (CBC, CMP, UA ordered) PRN meds MVI,thiamine, folic acid Librium decreased 5mg po bid for alcohol withdrawals naltrexone started, risk, benefits, alternatives discussed with the patient seroquel 200mg amhs for psychosis prozac 20mg po daily for anxiety and depression SW consultation for discharge plan and social issues Family involvement Follow up on labs Will monitor closely Pt was educated about risk/benefits and alternatives of medications, coping strategies (safety plan, suicide prevention), relapse prevention, importance of follow up with psychiatrist and therapist, stay away from drugs/alcohol/smoking PT recommended ADELINE Family Contact Family involvement: Family/SO is involved Family contact: Patient agrees to contact Family contact name: Qiana Hickey,sister Family contacted how many times per week?: 2 Discharge/Continuing Care - Treatment Team Participation Patient/Family/SO Statement: Milieu/structure/supportive therapy Medical follow up pt seems to have episodes of confusion (CBC, CMP, UA ordered) PRN meds MVI,thiamine, folic acid Librium decreased 5mg po bid for alcohol withdrawals naltrexone started, risk, benefits, alternatives discussed with the patient seroquel 200mg amhs for psychosis prozac 20mg po daily for anxiety and depression SW consultation for discharge plan and social issues Family involvement Follow up on labs Will monitor closely Pt was educated about risk/benefits and alternatives of medications, coping strategies (safety plan, suicide prevention), relapse prevention, importance of follow up with psychiatrist and therapist, stay away from drugs/alcohol/smoking PT recommended ADELINE Treatment Plan Review - Problem Auditory hallucination Time Initiated: : Medication non adherence Time Initiated: : Altered thought process Time Initiated: :
[2018-01-08] MEDS: Pantoprazole 20 mg EC Tab PO SCH (06:15)
--- NOTE | 2018-01-08 08:09 | PN ---
DATE: 01/07/2018 SUBJECTIVE: The patient is 52 years old male. The patient was seen and examined at bedside 01/07/2018, looking comfortable. No nausea, vomiting, or diarrhea. No hematuria or hematochezia. No swelling of the legs. No chest pain. No palpitations. No headache. No dizziness. PHYSICAL EXAMINATION: VITAL SIGNS: Temperature 97.4, pulse 75, blood pressure 123/85, respiratory rate 20. HEENT: Head is normocephalic, atraumatic. Eyes PERRLA. Extraocular muscles are intact. Conjunctivae clear. Nose patent. Mucous membranes moist. NECK: Supple. No carotid bruits. No JVD, thyromegaly. CHEST: Bilaterally symmetrical. HEART: S1, S2 positive. LUNGS: Clear to auscultation. ABDOMEN: Soft. Bowel sounds positive. No organomegaly. EXTREMITIES: No edema. No cyanosis. NEUROLOGIC: The patient is awake, alert, moving all four extremities. No focal deficits. LABORATORY DATA: White blood cell 6.4, hemoglobin 14.3, hematocrit 41.9, platelets 158,000. Sodium 140, potassium 3.6, BUN 30, creatinine 0.9, glucose 122. MEDICATIONS: Ativan, Coreg, folic acid, Geodon, Librium, Milk of Magnesia, Nicoderm, Protonix, Prozac, and Naltrexone. ASSESSMENT AND PLAN: Mr. Lewis Domínguez is a 52-year-old male with anemia, improved a lot; thrombocytopenia, now is within normal limits; hyperchloremia, renal insufficiency, abnormal liver function test but trending down. Urinalysis is good. Gastrointestinal and deep venous thrombosis prophylaxis. Repeat labs. Gi Ewing MD [facility]
[2018-01-08] MEDS: Multivitamin Therapeutic Tab PO SCH (09:19)
--- NOTE | 2018-01-08 09:39 | PCM.PYCHPN ---
Psychiatric Progress Note - Psychiatric Progress Note Patient seen today, length of contact: 30 minutes Problems Identified/Issues Discussed: I reviewed recent notes and patient was interviewed at bedside. Patient is known to me from interviews on the medical floor and on the psychiatric unit last weekend. Patient still appears confused, tired and vague during questioning. Today he guessed it was January 2018 and that we were in [facility]. Patient denies any depression however hallucinations persist "a little". Nursing notes from yesterday indicate that patient was still hearing voices telling him to kill himself. Affect remains flat and removed. Patient denies any side effects, discomfort or pain at this time and he doesn't appear to be in any physical distress. Overall, patient remains withdrawn with minimal spontaneous interactions with others. He was encouraged by this provider to spend more time on the unit and participate in activities. There were not behavioral issues overnight. Patient still demonstrates poor independent functioning and remains unpredictable. Diagnostic Results: schizophrenia alcohol use disorder Medication Change: Yes (librium decreased) Medical Record Reviewed: Yes Mental Status Examination - Cognitive Function Orientation: Person, Place, Situation Memory: Impaired Attention: Poor (some improvement) Concentration: Poor (improvement) Association: Loose Fund of Knowledge: Poor - Mood Mood: Depressed, Anxious - Affect Affect: Constricted, Flat - Speech Speech: Soft - Formal Thought Process Formal Thought Process: Hallucinations ("voices are not that intense"), Delusions, Paranoia - Suicidal Ideation Suicidal Ideation: No - Homicidal Ideation Homicidal Ideation: No Goal/Treatment Plan - Goal/Treatment Plan Need for Continued Stay: Remain at risks for inpatient hospitalization, Severe depression anxiety, Discharge may exacerbated symptoms, Failed transitioning, Severe functional impairment Progress Toward Problem(s) and Goals/Treatment Plan: * c/w current tx and plan * Librium decreased to 5 mg po HS, vitals reviewed and noted to be stable below: 01/07/18 01/07/18 07:01 16:00 Temperature 97.4 F L Pulse Rate 60 75 Respiratory 20 Rate Blood Pressure 123/77 123/85 * No new lab results today thus far Estimated Date of D/C: 01/09/18
--- NOTE | 2018-01-09 04:17 | PN ---
DATE: 01/08/2018 SUBJECTIVE: The patient is 52 years old male. The patient was seen and examined at the bedside and looking comfortable. Hallucinations are not that intensive. Delusions and paranoia is getting better. According to the nursing staff, the patient is a bit lethargic. Blood pressure is not very high. We will hold the Librium and got evaluation from hospitalist. No fever. No chills. No headache. No dizziness. No chest pain or palpitations according to record. PHYSICAL EXAMINATION: VITAL SIGNS: Temperature 97.4, pulse 60, repeat is 75, respiratory rate 20, and blood pressure 123/77. HEENT: Head is normocephalic and atraumatic. Eyes; PERRLA. Extraocular muscles are intact. Conjunctivae clear. Nose patent. Mucous membranes moist. NECK: Supple. No carotid bruits, JVD, or thyromegaly. CHEST: Bilaterally symmetrical. HEART: S1 and S2 positive. LUNGS: Clear to auscultation. ABDOMEN: Soft. Bowel sounds present. No organomegaly. EXTREMITIES: No edema. No cyanosis. NEUROLOGIC: The patient is awake, alert, and follow simple commands. MEDICATIONS: Ativan, Cogentin, folic acid, Geodon, discontinue Librium, milk of magnesia, Nicoderm patch, Protonix, Prozac, naltrexone, and Seroquel. LABORATORY DATA: We do not have recent labs today, but I reviewed old labs. ASSESSMENT AND PLAN: Mr. Sang Saucedo is a 52-year-old male with anemia, hyperchloremia, hyperglycemia, abnormal liver function test, but trending down. No proteinuria. RPR positive. The patient has history of ethanol abuse, schizophrenia, noncompliant, renal insufficiency. Gastrointestinal and deep venous thrombosis prophylaxes. Discontinue Librium. We will hold some sedative medications. Repeat blood pressure, if not get better, then we will take the patient to the medical floor and we will give some bolus of hydration. Gi Ewing MD
[2018-01-09] MEDS: Pantoprazole 20 mg EC Tab PO SCH (06:27)
[2018-01-09 07:07] VITALS: TEMP 97.1
[2018-01-09] MEDS: Multivitamin Therapeutic Tab PO SCH (09:35)
--- NOTE | 2018-01-09 10:30 | PCM.PYCHPN ---
Psychiatric Progress Note - Psychiatric Progress Note Patient seen today, length of contact: 30 minutes Problems Identified/Issues Discussed: I reviewed recent notes and patient was interviewed at bedside again. His grooming and hygiene are fair, he doesn't appear to be very motivated in this r egard or in his psychiatric care in general. He is disengaged during questioning and needs a lot of prompting to provide responses that are consistent and coherent. Speech is soft and mumbled at times. He seems very preoccupied with poor focus. Affect remains flat and removed. Surprisingly he is oriented to current month and year and superficially to circumstances. States that current hospitalization is for "nausea, headache and hallucinations". He continues to report our location is [facility] even though I corrected him yesterday and just a few minutes prior to asking him again. I question whether patient is still a little delirious, possible secondary to benzo intoxication so librium was completely discontinued today. Patient denies any depression however indicates that auditory hallucinations persist, most recently experienced yesterday. He heard voices telling him "they are going to kill you". He knows the voices aren't real but still finds them to be bothersome. He is tolerating current medications and feels they have been beneficial in reducing the intensity and frequency of hallucinations. Patient denies any side effects, discomfort or pain at this time and he doesn't appear to be in any physical distress. Overall, patient remains withdrawn with minimal spontaneous interactions with others. Again he was encouraged by this provider to spend more time on the unit and participate in activities. Patient responds noncommitedly "yeah I can do that". There were not behavioral issues overnight. Patient still demonstrates poor independent functioning and remains unpredictable. Of note: patient complained of dizziness yesterday and found to be hypotensive (85/53, 65) with negative orthostatics. Seroquel was decreased to 175 mg AMHS and librium 25 mg HS was held. Dr. Spear evaluated patient and recommended that staff push fluids which seemed to improved his blood pressure (106/78, 67). Patient denied recurrence of dizziness at bedside during my interview but did complain of fatigue. Will continue to monitor and consider further reduction in seroquel Diagnostic Results: schizophrenia alcohol use disorder Medication Change: Yes (seroquel decreased and librium discontinued) Medical Record Reviewed: Yes Mental Status Examination - Cognitive Function Orientation: Person, Place, Situation Memory: Impaired Attention: Poor (some improvement) Concentration: Poor (improvement) Association: Loose Fund of Knowledge: Poor - Mood Mood: Depressed, Anxious - Affect Affect: Constricted, Flat - Speech Speech: Soft - Formal Thought Process Formal Thought Process: Hallucinations ("voices are not that intense"), Delusions, Paranoia - Suicidal Ideation Suicidal Ideation: No - Homicidal Ideation Homicidal Ideation: No Goal/Treatment Plan - Goal/Treatment Plan Need for Continued Stay: Remain at risks for inpatient hospitalization, Severe depression anxiety, Discharge may exacerbated symptoms, Failed transitioning, Severe functional impairment Progress Toward Problem(s) and Goals/Treatment Plan: * c/w current tx and plan * Decreased seroquel to 175 mg po AMHS from 200 mg AMHS due to patient's sedation on the unit * Librium discontinued today, vitals reviewed and noted to be stable below: Selected Entries 01/07/18 01/07/18 01/08/18 07:01 16:00 07:14 Temperature 97.4 F L 97.2 F L Pulse Rate 60 75 54 L Respiratory 20 20 Rate Blood Pressure 123/77 123/85 134/92 H 01/08/18 01/09/18 16:00 07:06 Temperature 97.1 F L Pulse Rate 66 68 Respiratory Rate Blood Pressure 80/55 L 98/69 L * Of note: patient complained of dizziness on , 01/08/18 and found to be hypotensive (85/53, 65) with negative orthostatics. Seroquel was decreased to 175 mg AMHS and librium 25 mg HS was held. Dr. Spear evaluated patient and recommended that staff push fluids which seemed to improved his blood pressure (106/78, 67). Patient denied recurrence of dizziness at bedside during my interview but did complain of fatigue. Will continue to monitor and consider further reduction in seroquel. I really appreciate nursing staff care and feed back. Estimated Date of D/C: 01/09/18
[2018-01-09 17:08] VITALS: BP 108/68; PULSE 76; RESP 22
--- NOTE | 2018-01-09 20:18 | PCM.FALL ---
Post Fall Progress Note - Post Fall Fall Date: 01/09/18 Fall Time: 07:38 Description of Fall: Patient was sitting in a chair in the conference room, he then attempted to rise from the chair but lost his balance and fell to his right side landing on his right hip and right lumbar area. He stated he might have lost his balance due to being dizzy. Patient had constricted affect and was not elaborating with his answers. He denied hitting his head. He denied loss of consciousness. He denied being in pain. He denied having a headache. He denied feeling lightheaded. He appeared comfortable when myself and resident Dr Torres arrived to the psych unit to evaluate him. - Post Fall Exam Vital Sign: Temp Pulse Resp BP Pulse Ox 97.1 F L 76 22 108/68 01/09/18 07:06 01/09/18 16:00 01/09/18 16:00 01/09/18 16:00 Skull Exam: Negative for: Scalp wound, Scalp hematoma, Scalp depression, Ridge in skull Eye Exam: Positive for: Pupils equal, Pupils reactive Ear Exam: Negative for: Bleeding Nose Exam: Negative for: Bleeding Skin Exam: Negative for: Grazes, Bruising Mouth Exam: Negative for: Tongue bitten Neck Exam: Negative for: Tenderness Spinal Exam: Negative for: Tenderness Chest Exam: Negative for: Difficulty breathing Abdomen Exam: Negative for: Tenderness Pelvic Exam: Negative for: Tenderness Arm Exam: Negative for: Deformity Leg Exam: Negative for: Deformity Impression/Plan: His vitals were taken which were all within normal limits. His blood sugar was checked which was 90. However since the fall was unwitnessed we decided to send the patient to the ER for further evaluation as further imaging may be necessary. Even though he denied hitting his head, the patient is a poor historian and a CT head in this case might be warranted. PGY-3 Dr Torres escorted the patient who was in a wheelchair to the ER. If evaluation and/or imaging is benign the patient will return to the psych unit.
--- NOTE | 2018-01-10 10:31 | PCM.PYCHDC ---
Mental Status Examination - Mental Status Examination Orientation: Person, Place, Situation Memory: Impaired Mood: Anxious, Neutral Affect: Constricted Speech: Soft Attention: Poor Concentration: Poor Association: Loose Fund of Knowledge: Poor Formal Thought Process: Hallucinations Description of patient's judgement and insight: iMPROVING I/J Psychotic Thoughts and Behaviors: Patient denies any depression however indicates that auditory hallucinations persist, most recently experienced yesterday. He heard voices telling him "they are going to kill you". He knows the voices aren't real but still finds them to be bothersome. He is tolerating current medications and feels they have been beneficial in reducing the intensity and frequency of hallucinations. He denies VH or paranoia. Delusions were not elicited Suicidal Ideation: No Current Homicidal Ideation?: No Discharge Summary - Discharge Note Reason for Hospitalization: pt is 52yo Male with reported h/o schizophrenia, alcohol use disorder, presents to the emergency department complaining of auditory hallucinations, required medical admission for alcohol withdrawals, pt was seen by psychiatrist billing control clerk, pt presented to be psychotic, reported being noncompliant with medications, pt also reported command type hallucinations, required to be trans nicolas to the psychiatric inpatient unit, pt failed outpatient treatment, requires admission/observation/stabilization. Psychiatric History (includes Medical, Family, Personal Hx): see HPI Laboratory Data: Abnormal Lab Results 01/09/18 19:29 POC Glucose (mg/dL) 91 Laboratory Tests 12/31/17 12/31/17 12/31/17 07:30 07:30 07:30 WBC RBC Hgb Hct MCV MCH MCHC RDW Plt Count MPV Gran % Lymph % (Auto) [place] % (Auto) Eos % (Auto) Baso % (Auto) Gran # Lymph # (Auto) [place] # (Auto) Eos # (Auto) Baso # (Auto) Sodium Potassium Chloride Carbon Dioxide Anion Gap BUN Creatinine Est GFR ( Amer) Est GFR (Non-Af Amer) POC Glucose (mg/dL) Random Glucose Fasting Glucose 108 Calcium Total Bilirubin AST ALT Alkaline Phosphatase Total Protein Albumin Globulin Albumin/Globulin Ratio Triglycerides 94 Cholesterol 177 LDL Cholesterol Direct 69 HDL Cholesterol 91 H TSH 3rd Generation 2.15 Urine Color Urine Appearance Urine pH Ur Specific [place] Urine Protein Urine Glucose (UA) Urine Ketones Urine Blood Urine Nitrate Urine Bilirubin Urine Urobilinogen Ur Leukocyte Esterase RPR Nonreactive 12/31/17 12/31/1701/01/18 13:10 13:10 18:30 WBC 7.2 RBC 4.03 Hgb 13.2 L D Hct 39.0 L MCV 96.8 MCH 32.8 MCHC 33.8 RDW 14.7 H Plt Count 96 L MPV 11.6 H Gran % 69.6 H Lymph % (Auto) 15.1 L [place] % (Auto) 13.7 H Eos % (Auto) 1.3 L Baso % (Auto) 0.3 Gran # 4.98 Lymph # (Auto) 1.1 L [place] # (Auto) 1.0 H Eos # (Auto) 0.1 Baso # (Auto) 0.02 Sodium 141 Potassium 3.7 Chloride 109 H Carbon Dioxide 26 Anion Gap 10 BUN 13 Creatinine 0.9 Est GFR ( Amer) > 60 Est GFR (Non-Af Amer) > 60 POC Glucose (mg/dL) Random Glucose 103 Fasting Glucose Calcium 9.2 Total Bilirubin 0.5 AST 167 H D ALT 196 H Alkaline Phosphatase 112 Total Protein 7.0 Albumin 3.8 Globulin 3.2 Albumin/Globulin Ratio 1.2 Triglycerides Cholesterol LDL Cholesterol Direct HDL Cholesterol TSH 3rd Generation Urine Color Yellow Urine Appearance Clear Urine pH 6.0 Ur Specific [place] 1.015 Urine Protein Negative Urine Glucose (UA) Negative Urine Ketones Negative Urine Blood Negative Urine Nitrate Negative Urine Bilirubin Negative Urine Urobilinogen 0.2 Ur Leukocyte Esterase Negative RPR 01/03/18 01/03/18 01/07/18 06:30 06:30 07:10 WBC 7.5 6.4 RBC 4.23 4.30 Hgb 13.9 L 14.1 Hct 41.0 L 41.9 L MCV 96.9 97.4 MCH 32.9 32.8 MCHC 33.9 33.7 RDW 14.3 14.2 Plt Count 107 L 158 MPV 11.4 H 12.0 H Gran % Lymph % (Auto) [place] % (Auto) Eos % (Auto) Baso % (Auto) Gran # Lymph # (Auto) [place] # (Auto) Eos # (Auto) Baso # (Auto) Sodium 140 Potassium 3.6 Chloride 108 H Carbon Dioxide 25 Anion Gap 11 BUN 15 Creatinine 0.9 Est GFR ( Amer) > 60 Est GFR (Non-Af Amer) > 60 POC Glucose (mg/dL) Random Glucose 105 Fasting Glucose Calcium 8.6 Total Bilirubin 0.4 AST 56 ALT 109 H Alkaline Phosphatase 100 Total Protein 6.8 Albumin 3.5 Globulin 3.2 Albumin/Globulin Ratio 1.1 Triglycerides Cholesterol LDL Cholesterol Direct HDL Cholesterol TSH 3rd Generation Urine Color Urine Appearance Urine pH Ur Specific [place] Urine Protein Urine Glucose (UA) Urine Ketones Urine Blood Urine Nitrate Urine Bilirubin Urine Urobilinogen Ur Leukocyte Esterase RPR 01/07/18 01/09/18 07:10 19:29 WBC RBC Hgb Hct MCV MCH MCHC RDW Plt Count MPV Gran % Lymph % (Auto) [place] % (Auto) Eos % (Auto) Baso % (Auto) Gran # Lymph # (Auto) [place] # (Auto) Eos # (Auto) Baso # (Auto) Sodium 140 Potassium 3.6 Chloride 108 H Carbon Dioxide 25 Anion Gap 11 BUN 13 Creatinine 0.9 Est GFR ( Amer) > 60 Est GFR (Non-Af Amer) > 60 POC Glucose (mg/dL) 91 Random Glucose 122 H Fasting Glucose Calcium 9.0 Total Bilirubin AST ALT Alkaline Phosphatase Total Protein Albumin Globulin Albumin/Globulin Ratio Triglycerides Cholesterol LDL Cholesterol Direct HDL Cholesterol TSH 3rd Generation Urine Color Urine Appearance Urine pH Ur Specific [place] Urine Protein Urine Glucose (UA) Urine Ketones Urine Blood Urine Nitrate Urine Bilirubin Urine Urobilinogen Ur Leukocyte Esterase RPR Consultations:: List each consultation separately and include: 1. Reason for request. 2. Findings. 3. Follow-up Consultations: Of note: patient complained of dizziness 01/08/18 and found to be hypotensive (85/53, 65) with negative orthostatics. Seroquel was decreased to 175 mg AMHS and librium 25 mg HS was held. Dr. Ewing evaluated patient and recommended that staff push fluids which seemed to improved his blood pressure (106/78, 67). Patient denied recurrence of dizziness at bedside during my interview on 01/09/18 but did complain of fatigue. Patient was transferred to the medical floor for further evaluation s/p unwitnessed fall on the psychiatric unit 01/09/18 around 7:20 pm (seen by Dr. Alvarado). Patient lost balance, no LOC Summary of Hospital Course include:: 1. Description of specific treatment plan utilized for patients during their course of treatmen. 2. Summarize the time- course for resolution of acute symptoms and/or regressed behaviors. 3. Describe issues identified and worked on during hospitalization. 4. Describe medication utilized. 5. Describe medical problems identified and treated. 6. Reassessment of suicide risk Summary of Hospital Course: PROGRESS NOTE BY DR. CHEN 01/09/18 I reviewed recent notes and patient was interviewed at bedside again. His grooming and hygiene are fair, he doesn't appear to be very motivated in this regard or in his psychiatric care in general. He is disengaged during questioning and needs a lot of prompting to provide responses that are consistent and coherent. Speech is soft and mumbled at times. He seems very preoccupied with poor focus. Affect remains flat and removed. Surprisingly he is oriented to current month and year and superficially to circumstances. States that current hospitalization is for "nausea, headache and hallucinations". He continues to report our location is [facility] even though I corrected him yesterday and just a few minutes prior to asking him again. I question whether patient is still a little delirious, possible secondary to benzo intoxication so librium was completely discontinued today. Patient denies any depression however indicates that auditory hallucinations persist, most recently experienced yesterday. He heard voices telling him "they are going to kill you". He knows the voices aren't real but still finds them to be bothersome. He is tolerating current medications and feels they have been beneficial in reducing the intensity and frequency of hallucinations. Patient denies any side effects, discomfort or pain at this time and he doesn't appear to be in any physical distress. Overall, patient remains withdrawn with minimal spontaneous interactions with others. Again he was encouraged by this provider to spend more time on the unit and participate in activities. Patient responds noncommitedly "yeah I can do that". There were not behavioral issues overnight. Patient still demonstrates poor independent functioning and remains unpredictable. Of note: patient complained of dizziness yesterday and found to be hypotensive (85/53, 65) with negative orthostatics. Seroquel was decreased to 175 mg AMHS and librium 25 mg HS was held. Dr. Spear evaluated patient and recommended that staff push fluids which seemed to improved his blood pressure (106/78, 67). Patient denied recurrence of dizziness at bedside during my interview but did complain of fatigue. Will continue to monitor and consider further reduction in seroquel Patient was transferred to the medical floor for further evaluation s/p unwitnessed fall on the psychiatric unit 01/09/18 (seen by Dr. Alvarado). Patient lost balance, no LOC - Final Diagnosis (DSM 5) Condition upon Discharge: GUARDED DSM 5: Schizophrenia Alcohol Use Disorder Disposition: OTHER INSTITUTION Follow-up Treatment Plan: * Will f/u with patient on the medical floor as a psychiatric help desk consultant while he is being medically evaluated. * Will c/w Prozac 20 mg, Seroquel 50/100, Trazodone 50 mg HS, Revia 50 mg on the medical floor - Smoking Cessation Smoking Cessation Medication prescribed: Yes
--- NOTE | 2018-01-10 11:17 | PN ---
DATE: 01/09/2018 SUBJECTIVE: The patient is 52-year-old male. The patient was seen and examined at the bedside on 01/09/2018. The patient looking comfortable, seen in activity room. No fever. No chills. No nausea, vomiting, diarrhea. No hematuria or hematochezia. No swelling of the legs. No chest pain. No palpitation. No headache. No dizziness. PHYSICAL EXAMINATION VITAL SIGNS: Temperature 97.4, pulse 60, respiratory rate 20, blood pressure 123/77. HEENT: Head: Normocephalic, atraumatic. Eyes: PERRLA. Extraocular muscles are intact. Conjunctivae are clear. Nose patent. Mucous membranes moist. NECK: Supple. No carotid bruits. No JVD or thyromegaly. CHEST: Bilaterally symmetrical. HEART: S1 and S2 positive. LUNGS: Clear to auscultation. ABDOMEN: Soft. Bowel sounds present. No organomegaly. EXTREMITIES: No edema. No cyanosis. NEUROLOGICAL: The patient is awake and alert. Moving all 4 extremities. No focal deficits. LABORATORY DATA: White blood cell 6.7, hemoglobin 14.14, hematocrit 41.9, and platelets 158. Sodium 140, potassium 3.3, BUN 13, creatinine 0.9, glucose 122. ASSESSMENT AND PLAN: Mr. Sang Saucedo is a 52-year-old male with hyperkalemia, hyperglycemia, abnormal liver function test, trending down, history of anemia, improving, history of ethanol abuse, was in the duties treated on medical floor, transferred to psych for patient's schizophrenia. Patient is noncompliant, depression, is under care of psychiatrist Dr. Dr. Brook Stewart for patient, history of hallucinations improving, dizziness is better, complaining of fatigue and tired, used to use Librium a tapering dose discontinued, out of bed to physical therapy, gastrointestinal and deep venous thrombosis prophylaxis, repeat labs. Gi Ewing MD
== END 2018-01-10 01:29 | disposition short-term general hospital (02) | DRG 885 ==
LOC: PSYC 19:49
PROVIDERS: ADMIT Psychiatry & Neurology Psychiatry; ATTEND Psychiatry & Neurology Psychiatry
PROC: GZ3ZZZZ Medication Management (ICD-10-PCS; principal; 2017-12-30)
DX: F20.9 Schizophrenia, unspecified (principal); F10.239 Alcohol dependence with withdrawal, unspecified; D69.6 Thrombocytopenia, unspecified; F32.9 Major depressive disorder, single episode, unspecified; G25.2 Other specified forms of tremor; I10 Essential (primary) hypertension; D64.9 Anemia, unspecified; E87.8 Other disorders of electrolyte and fluid balance, not elsewhere classified; F41.9 Anxiety disorder, unspecified; F17.210 Nicotine dependence, cigarettes, uncomplicated; Z91.14 Patient's other noncompliance with medication regimen; Z91.5 Personal history of self-harm

== ENCOUNTER 2018-01-09 19:42 | Inpatient (IN) | payer MEDICARE, OTHER ==
--- NOTE | 2018-01-09 20:28 | ED PDOC ---
Arrival/HPI - General Chief Complaint: Trauma Time Seen by Provider: 01/09/18 19:47 Historian: Patient - History of Present Illness Narrative History of Present Illness (Text): 01/09/18 20:26 Sang Saucedo is a 52 year old male, whose past medical history includes schizophrenia and alcohol abuse, who presents to the Emergency department transferred from the psychiatric floor status post fall. As per nursing staff, patient's dose of Seroquel was decreased recently yesterday and patient was more active today. Patient was in a conference room by himself and had an unwitnessed fall. [facility] was called and patient was subsequently transferred to the Emergency department for further evaluation. Patient on arrival is drowsy but arousable, complaining of lower back pain, neck pain, and some left wrist pain. Patient denies any fever, chills, nausea, vomiting, back pain, neck pain, headache, or any other complaints. PMD: Dr. Ewing Time/Duration: Prior to Arrival Symptom Onset: Gradual Symptom Course: Unchanged Activities at Onset: Light Context: Other (5B) Past Medical History - Provider Review Nursing Documentation Reviewed: Yes - Infectious Disease Hx of Infectious Diseases: None - Cardiac Hx Cardiac Disorders: No - Pulmonary Hx Respiratory Disorders: No - Neurological Hx Neurological Disorder: No - HEENT Hx HEENT Disorder: No - Renal Hx Renal Disorder: No - Endocrine/Metabolic Hx Endocrine Disorders: No - Hematological/Oncological Hx Blood Disorders: No - Integumentary Hx Dermatological Disorder: No - Musculoskeletal/Rheumatological Hx Musculoskeletal Disorders: Yes (L KNEE ARTHROSCOPY) Hx Falls: Yes Hx Unsteady Gait: Yes (CANE) - Gastrointestinal Hx Gastrointestinal Disorders: No - Genitourinary/Gynecological Hx Genitourinary Disorders: No - Psychiatric Hx Psychophysiologic Disorder: Yes Hx Schizophrenia: Yes Hx Substance Use: No - Anesthesia Hx Anesthesia: No Family/Social History - Physician Review Nursing Documentation Reviewed: Yes Family/Social History: Unknown Family HX Smoking Status: Current Some Days Smoker Hx Alcohol Use: Yes Hx Substance Use: No Allergies/Home Meds Allergies/Adverse Reactions: Allergies No Known Allergies Allergy (Verified 01/09/18 19:46) Home Medications: Home Meds Medication Instructions Recorded Confirmed RX: Haloperidol [Haldol] 5 mg PO DAILY 12/27/17 12/30/17 traZODone [trazODONE HYDROCHLORIDE] 100 mg PO HS 12/27/17 12/30/17 Review of Systems - Physician Review All systems were reviewed & negative as marked: Yes - Review of Systems Constitutional: Normal. absent: Fevers Eyes: Normal ENT: Normal Respiratory: Normal. absent: SOB, Cough Cardiovascular: Normal. absent: Chest Pain Gastrointestinal: Normal. absent: Abdominal Pain, Diarrhea, Nausea, Vomiting Genitourinary Male: Normal. absent: Dysuria, Frequency, Hematuria, Urinary Output Changes Musculoskeletal: Arthralgias (+left wrist pain), Back Pain, Neck Pain Skin: Normal Neurological: Normal. absent: Headache, Dizziness Endocrine: Normal Hemo/Lymphatic: Normal Psychiatric: Normal Physical Exam Vital Signs Reviewed: Yes Temperature: Afebrile Blood Pressure: Normal Pulse: Regular Respiratory Rate: Normal Appearance: Positive for: Well-Appearing, Non-Toxic, Comfortable Pain Distress: None Mental Status: Positive for: other (Drowsy but arousable) - Systems Exam Head: Present: Atraumatic, Normocephalic Pupils: Present: PERRL Extroacular Muscles: Present: EOMI Conjunctiva: Present: Normal Mouth: Present: Moist Mucous Membranes Neck: Present: Normal Range of Motion Respiratory/Chest: Present: Clear to Auscultation, Good Air Exchange. No: Respiratory Distress, Accessory Muscle Use Cardiovascular: Present: Regular Rate and Rhythm, Normal S1, S2. No: Murmurs Abdomen: No: Tenderness, Distention, Peritoneal Signs Back: Present: Normal Inspection Upper Extremity: Present: Normal Inspection. No: Cyanosis, Edema Lower Extremity: Present: Normal Inspection. No: Edema Neurological: Present: GCS=15, CN II-XII Intact, Speech Normal Skin: Present: Warm, Dry, Normal Color. 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 Plan: -- CT Head w/o contrast -- CT Cervical Spine w/o contrast -- CT Thoracic Spine w/o contrast -- CT Lumbar Spine w/o contrast -- EKG -- Labs, cardiac enzymes -- XR Left Wrist -- Reassess and disposition Prior Visits: Notes and results from previous visits were reviewed. Progress Notes: Reviewed EKG, NSR at [address] bpm[address] Non-specific ST/T wave changes. 01/09/18 22:30 Reviewed radiology, XR Left Wrist shows no acute fracture/processes. CT Head: BRAIN No acute intraparenchymal hemorrhage. No mass lesion. No CT evidence for acute territorial infarct. No midline shift or extra-axial collections. VENTRICLES: No hydrocephalus. ORBITS: The orbits are unremarkable. SINUSES AND MASTOIDS: The paranasal sinuses and mastoid air cells are clear. BONES: No fracture. SOFT TISSUES: Unremarkable. IMPRESSION: No acute intracranial abnormality. Electronically signed on Jan 09, 2018 10:17:55 PM EST by: Jonny Carrera M.D., LYNN Certified By ABR & CBC[employer] Fellowship Trained MRI and CT Specialist CT Cervical Spine: There is no fracture or spondylolisthesis visualized. The paraspinal soft tissues are unremarkable. There are no lytic or blastic lesions. Straightening of cervical lordosis is seen, suggesting muscular spasm. There is evidence of mild to moderate multilevel disk disease, demonstrated by osteophytosis and endplate sclerosis. IMPRESSION: 1. No fracture or spondylolisthesis. 2. Straightening of cervical lordosis is seen, suggesting muscular spasm. 3. Multilevel spondylosis. Thank you for your kind referral of this patient. We appreciate the opportunity to participate in this patient's care. Electronically signed on Jan 09, 2018 10:20:09 PM EST by: Jonny Carrera M.D., LYNN Certified By ABR & CBC[employer] Fellowship Trained MRI and CT Specialist CT Thoracic Spine: BONES: No fracture or spondylolisthesis. ALIGNMENT: Bony alignment is anatomic. DEGENERATIVE CHANGES: Mild to moderate multilevel disk disease, demonstrated by osteophytosis and endplate sclerosis. SOFT TISSUES: The soft tissues are unremarkable. MISCELLANEOUS: Flowing anterior syndesmophytes at virtually all thoracic levels consistent with DISH. IMPRESSION: 1. Mild to moderate multilevel disk disease, demonstrated by osteophytosis and endplate sclerosis. 2. No fracture or spondylolisthesis. 3. Flowing anterior syndesmophytes at virtually all thoracic levels consistent with DISH. Electronically signed on Jan 09, 2018 10:22:33 PM EST by: Jonny Carrera M.D., MBA Certified By ABR & CBC[employer] Fellowship Trained MRI and CT Specialist CT Lumbar Spine: There is no fracture visualized. The paraspinal soft tissues are unremarkable. There are no lytic or blastic lesions. Preservation of lumbar lordosis. There is evidence of mild multilevel disk disease, demonstrated by osteophytosis ad endplate sclerosis. IMPRESSION: 1. No fracture or spondylolisthesis. 2. Mild multilevel disk disease. Thank you for your kind referral of this patient. We appreciate the opportunity to participate in this patient's care. Electronically signed on Jan 09, 2018 10:24:56 PM EST by: Jonny Carrera M.D., LYNN Certified By ABR & CBC[employer] Fellowship Trained MRI and CT Specialist 01/09/18 22:[address] Ewing, who is aware and agrees with plan. Accepts pt in to her service. Pt will go to remote telemetry observation for syncope and fall. Requests Dr. Osorio and Dr. Jenkins on consult. 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 I have reviewed the chart and agree that the record accurately reflects my personal performance of the history, physical exam, medical decision making, and the department course for this patient. I have also personally directed, reviewed, and agree with the discharge instructions and disposition. Disposition/Present on Arrival - Present on Arrival Any Indicators Present on Arrival: No History of DVT/PE: No History of Uncontrolled Diabetes: No Urinary Catheter: No History of Decub. Ulcer: No History Surgical Site Infection Following: None - Disposition Have Diagnosis and Disposition been Completed?: Yes Diagnosis: Syncope, Fall, Schizophrenia Disposition: HOSPITALIZED Disposition Time: 23:26 Patient Problems: Current Active Problems Problem Status Onset Fall Acute Schizophrenia Acute Syncope Acute Condition: GOOD
[2018-01-09 21:24] LABS: HEMOGLOBIN 16.1 g/dL (14.0-18.0); MEAN CELL VOLUME 98.1 fl (80.0-105.0); MEAN CORPUSCULAR HEMOGLOBIN 33.8 pg (25.0-35.0); MEAN CORPUSCULAR HGB CONC 34.4 g/dl (31.0-37.0); MEAN PLATELET VOLUME 12.1 fl (7.0-11.0); RBC 4.77 10^6/uL (3.5-6.1); WHITE BLOOD COUNT 9.3 10^3/uL (4.5-11.0)
[2018-01-09 22:01] LABS: TROPONIN I < 0.01 ng/mL
[2018-01-09 22:59] LABS: CALCIUM 9.5 mg/dL (8.4-10.5)
[2018-01-09 23:12] LABS: ALB/GLOB RATIO 1.2 (1.1-1.8); ALBUMIN 4.2 g/dL (3.0-4.8); ALT/SGPT 58 U/L (7-56); AST/SGOT 36 U/L (17-59); BLOOD UREA NITROGEN 14 mg/dL (7-21); GFR NON-AFRICAN AMERICAN > 60
[2018-01-10 00:37] VITALS: BMI 33.3
--- NOTE | 2018-01-10 08:50 | CT ---
Date of service: 01/09/2018 PROCEDURE: CT HEAD WITHOUT CONTRAST. HISTORY: fall COMPARISON: None available. TECHNIQUE: Axial computed tomography images were obtained through the head/brain without intravenous contrast. Radiation dose: Total exam DLP = 1108.89 mGy-cm. This CT exam was performed using one or more of the following dose reduction techniques: Automated exposure control, adjustment of the mA and/or kV according to patient size, and/or use of iterative reconstruction technique. FINDINGS: HEMORRHAGE: No intracranial hemorrhage. BRAIN: Hopkins-white matter differentiation is preserved. There is no mass, mass effect or abnormal extra-axial fluid collection. There is no territorial infarction. The midline sagittal structures are normal. VENTRICLES: There is mild age-related global parenchymal volume loss and proportionate enlargement of the ventricles and cortical sulci. CALVARIUM: There is no calvarial fracture or extracranial soft tissue swelling. PARANASAL SINUSES: Predominantly clear. MASTOID AIR CELLS: Predominantly clear. OTHER FINDINGS: None. IMPRESSION: No acute intracranial abnormality. A preliminary report was provided by [employer].
--- NOTE | 2018-01-10 08:56 | CT ---
Date of service: 01/09/2018 PROCEDURE: CT Cervical Spine without contrast HISTORY: fall COMPARISON: None available. TECHNIQUE: Axial computed tomography images were obtained of the cervical spine without the use of intravenous contrast. Coronal and sagittal reformatted images were created and reviewed. Radiation dose: Total exam DLP = 660.54 mGy-cm. This CT exam was performed using one or more of the following dose reduction techniques: Automated exposure control, adjustment of the mA and/or kV according to patient size, and/or use of iterative reconstruction technique. FINDINGS: VERTEBRAE: There is normal alignment of the cervical vertebral bodies. There is straightening of the cervical spine with loss of normal cervical lordosis. There is no acute fracture or traumatic anterior listhesis. The craniocervical junction is normal. The atlantoaxial joint is normal. DISCS/SPINAL CANAL/NEURAL FORAMINA: There are multilevel degenerative changes with disc osteophyte complexes, uncovertebral joint hypertrophy and multilevel facet arthropathy without spinal canal stenosis. PARASPINAL SOFT TISSUES: Unremarkable. OTHER FINDINGS: No prevertebral soft tissue thickening. The lung apices are clear. IMPRESSION: No acute fracture or traumatic anterior listhesis. Straightening of the cervical spine may be positional or related to muscle spasm. A preliminary report was provided by [employer].
--- NOTE | 2018-01-10 09:02 | CT ---
Date of service: 01/09/2018 PROCEDURE: CT Thoracic Spine without contrast HISTORY: fall COMPARISON: None available. TECHNIQUE: Axial computed tomography images were obtained of the thoracic spine without intravenous contrast. Coronal and sagittal reformatted images were created and reviewed. Radiation dose: Total exam DLP = 1295.8 mGy-cm. This CT exam was performed using one or more of the following dose reduction techniques: Automated exposure control, adjustment of the mA and/or kV according to patient size, and/or use of iterative reconstruction technique. FINDINGS: VERTEBRAE: There is normal alignment of the thoracic vertebral bodies. There is normal thoracic kyphosis. There is no acute fracture or bone destruction. There is mild diffuse bone demineralization DISCS/SPINAL CANAL/NEURAL FORAMINA: Within the limits of the CT technique, no large disc herniation seen. No central canal or neural foraminal stenosis. There is flowing anterior ossification in the mid and lower thoracic spine consistent with diffuse idiopathic skeletal hyperostosis. PARASPINAL SOFT TISSUES: Unremarkable. OTHER FINDINGS: Unremarkable. IMPRESSION: No acute fracture. Diffuse idiopathic skeletal hyperostosis. A preliminary report was provided by [employer].
--- NOTE | 2018-01-10 09:08 | CT ---
Date of service: 01/09/2018 PROCEDURE: CT Lumbar Spine without contrast HISTORY: Fall COMPARISON: None available. TECHNIQUE: Axial computed tomography images were obtained of the lumbar spine without the use of intravenous contrast. Coronal and sagittal reformatted images were created and reviewed. Radiation dose: Total exam DLP = 2017.6 mGy-cm. This CT exam was performed using one or more of the following dose reduction techniques: Automated exposure control, adjustment of the mA and/or kV according to patient size, and/or use of iterative reconstruction technique. FINDINGS: VERTEBRAE: There is normal alignment of the lumbar vertebral bodies. There is normal lumbar lordosis. There is no acute fracture, spondylolysis or spondylolisthesis. There is diffuse bone demineralization. DISCS/SPINAL CANAL/NEURAL FORAMINA: Evaluation of the discs, spinal canal and conus medullaris is limited on noncontrast CT examination. Allowing for this, no large disc herniation. Mild multilevel degenerative disc disease, worse at L5-S1 with mild spinal canal stenosis and mild neural foraminal narrowing. PARASPINAL SOFT TISSUES: Unremarkable. OTHER FINDINGS: None. IMPRESSION: No acute fracture, spondylolysis or spondylolisthesis. A preliminary report was provided by [employer].
--- NOTE | 2018-01-10 09:39 | CARD ---
APPROVED REPORT Date of service: 01/09/2018 EKG Measurement Heart [id number] <Conclusion> Normal sinus rhythm Minimal voltage criteria for LVH, may be normal variant Borderline ECG
--- NOTE | 2018-01-10 10:26 | RAD ---
Date of service: 01/09/2018 PROCEDURE: Left Wrist Radiographs. HISTORY: injury COMPARISON: None. FINDINGS: BONES: There is periarticular bone demineralization. No acute displaced fracture or bone destruction. Bone alignment is normal. JOINTS: Normal. No dislocation. SOFT TISSUES: Normal. OTHER FINDINGS: None. IMPRESSION: No acute fracture or dislocation.
--- NOTE | 2018-01-10 16:36 | CON ---
DATE OF CONSULTATION: 01/09/2018 HISTORY OF PRESENT ILLNESS: The patient is a 52-year-old male with a history of schizophrenia as well as alcohol disorder, who was medically admitted for alcohol withdrawals from 12/27/2017 to 12/30/2017. During this time, the patient was seen by Psychiatry for reports of auditory hallucination and disorganization as well as depression. He was medically cleared and then was transferred to Psychiatry from 12/30/2017 to 01/10/2018 where his presentation did seem to improve, specially his depression improved as well as the intensity and frequency of his hallucinations, though those never resolved. The patient did have multiple episodes of hypotension as well as sedation on the unit, which prompted this provider to decrease Seroquel to 175 mg twice daily from 200 mg twice daily as well as discontinue the Librium. The patient was more alert yesterday, however suffered a fall and was subsequently transferred to the medical floor for further medical workup. I met with the patient at bedside this morning and he remembers me from our prior interviews on the psychiatric unit. He is much alert than our prior encounters. He continues to say that it is [facility]; however, he remembers that I had reminded him on multiple occasions that we are at [facility]. He notes that a month ago he has been admitted at [facility]. I do feel that his insight and affect are much better improved. His behavior is improving. His coherency is also improving. However, overall, he remains subdued with respect to his affect and preoccupation. Behaviorally, there have been no problems right now and he denies any current pain with it accompanying and does not remember the onset of falling or losing of consciousness. With regard to his depression, he still reports that his symptoms seem to go up and down, but he denies any depression. Hallucinations still occur and they occur daily, however none yesterday. He hears voices at times and that someone is going to kill him. The patient does not want to , does not want to harm anybody, in acute paranoid delusions, but he will not elicit at bedside this morning and the patient is in control of the unit and tolerating the medication. IMPRESSION: Severe depression with psychotic features, alcohol use disorder, rule out schizoaffective disorder. VITAL SIGNS: Last reviewed. MEDICATIONS: Reviewed and the patient was only put on trazodone 100 mg h.s. RECOMMENDATIONS: 1. Prozac will be restarted 20 mg daily and ReVia will be started at 50 mg h.s. to help with alcohol craving. 2. Seroquel will be restarted at a much lower dose of 50 mg in the morning and 100 h.s., decreased from a dose of 175 mg am and h.s., which was prescribed to him on Friday01/09/2018 on the psychiatric unit. 3. Trazodone was decreased to 50 mg h.s. since Seroquel will be reinitiated. 4. Psychiatry will continue to follow with the patient on the medical floor and the patient should return to the psychiatric unit once he is medically stabilized. Brook Stewart MD
--- NOTE | 2018-01-11 07:57 | HP ---
DATE OF EXAM: 01/10/2018 CHIEF COMPLAINT: Passing out. HISTORY OF PRESENT ILLNESS: Mr. Sang Saucedo is 52 years old male with past medical history of schizophrenia, alcohol abuse, abnormal liver function test, DTs, history of delusions and hallucinations. He was treated on the medical floor for DTs. He was transferred to psych department for hallucinations, delusions and schizophrenia, and per nursing staff, the patient got a dose of Seroquel and the patient was more confused. Being in a conference room by himself and he had unwitnessed fall, tez LR was called and the patient was subsequently transferred to emergency room for further evaluation. When I interviewed the patient, he said he passed out, but there is no witness. Complaining of lower back pain, neck pain and some left wrist pain. No fever. No chills. No nausea, vomiting or diarrhea. No hematuria or hematochezia. PAST MEDICAL HISTORY: As above. Left knee arthroscopy, unsteady gait using cane, schizophrenia, history of ethanol abuse, history of abnormal liver function test. FAMILY HISTORY: Father and mother, noncontributory. HABITS: History of smoking. History of ethanol abuse. No substance abuse as per the patient. ALLERGIES: THE PATIENT IS NOT ALLERGIC WITH ANY MEDICATION. HOME MEDICATIONS: Haldol, trazodone. REVIEW OF SYSTEMS: The patient was seen and examined at the bedside, looking comfortable. No nausea, vomiting or diarrhea. No hematuria or hematochezia. No swelling of the legs. No chest pain. No palpitations. No headache. No dizziness. No fever. No chills. PHYSICAL EXAMINATION: VITAL SIGNS: Temperature 98.2, pulse 65, blood pressure 125/82, respiratory rate 19. HEENT: Head: Normocephalic, atraumatic. Eyes: PERRLA. Extraocular muscles are intact. Conjunctivae clear. Nose patent. Mucous membranes moist. NECK: Supple. No carotid bruits. No JVD or thyromegaly. CHEST: Bilaterally symmetrical. HEART: S1, S2 positive. LUNGS: Clear to auscultation. ABDOMEN: Soft. Bowel sounds present. No organomegaly. EXTREMITIES: No edema. No cyanosis. NEUROLOGIC: The patient is awake, alert, moving all four extremities. No focal deficits. LABORATORY DATA: White blood cells 9.3, hemoglobin 15.1, hematocrit 46.8 and platelets 154,000. Sodium 139, potassium 4.3, BUN 14, creatinine 1.2. ALT 58. Troponin, one set is 0.01. ASSESSMENT AND PLAN: Mr. Sang Saucedo is 52 years old male with abnormal liver function test, trending down. He was admitted on the medical floor for ethanol abuse, delirium tremens, abnormal liver function test. When delirium tremens was over, the patient was transferred to the psych for his schizophrenia, hallucinations and delusions. When he was getting treatment in the psych department, improving, suddenly he became like as per the patient he has syncopal attack; but as per nursing staff, he has a fall that is unwitnessed. Rapid response was called. Gait evaluation by medical team, transferred to the ER. CAT scan of the head was done, no acute intracranial abnormality. Surgical spine CT was done, no acute fracture or trauma . Changing of the cervical spine may be positional or related to the muscle spasm. Lumbar spine CT done, no acute fracture, spondylosis or spondylolisthesis. Thoracic spine CT done, diffuse idiopathic skeletal hyperostosis. Wrist x-ray done, showed no acute fracture or dislocation. Seen by Dr. Brook Stewart. History of schizophrenia, ethanol abuse, severe depression with psychotic features as per psychiatrist. She restarted the Prozac, will be started at 50 mg to help alcohol craving. Seroquel will be restarted. Trazodone was decreased. Psychiatry will continue to follow up. GI and DVT prophylaxis. Repeat labs. We will follow up. Gi Ewing MD LINDA
--- NOTE | 2018-01-11 21:42 | CON ---
DATE: 01/11/2018 HISTORY OF PRESENT ILLNESS: The patient is a 52-year-old male with history of schizophrenia as well as severe alcohol use disorder, who is being seen by Psychiatry on the medical floor after experiencing a fall while on the psychiatric unit. The patient was transferred to the medical floor as a precautionary measure as the patient has had episodes of dizziness and sedation as well as disorientation while he was being treated on the psychiatric unit last week. The patient was seen by the provider yesterday as well as today, and his alertness and responsiveness specifically, his spontaneity and fluency and focus are improving. His reactivity is also improving, though he does report having bouts of depression here and there. He denies any current depression or hallucinations since he has been transferred to the medical unit. He does not appear to be responding to internal stimuli. He is and bizarre. He appears tired, much less sedated than prior visits with him when he was in the psychiatric unit. The patient appears to be improving orientation in that regard and there appears to be no complications from this provider reducing Seroquel dose and discontinuing Librium. He continues to be aware of current month and year; however, again he states this is [facility] despite of my reminders with him on multiple occasions that we are at [facility]. His insight and judgment are much better improved and his behavior control has improved as well. Coherency is also improving. Overall, he remains subdued with respect to affect and preoccupation, and there has been no behavioral problems. The patient does not want to , does not want to harm anybody. Denies any acute paranoid delusions, and his insight and judgment are improving. IMPRESSION: Severe depression with psychotic features, alcohol abuse disorder, rule out schizoaffective disorder, rule out resolving delirium. Vital signs and meds were reviewed. MEDICATIONS: Relevant psychiatric medications include Prozac 20 mg daily, ReVia 50 mg at bedtime, Seroquel 50 a.m. and 100 at bedtime, and trazodone 50 mg at bedtime. RECOMMENDATIONS: We will continue with current medications. The patient appears to be improving. Brook Stewart MD
--- NOTE | 2018-01-11 22:32 | CON ---
DATE: 01/11/2018 HISTORY OF PRESENT ILLNESS: This is a 52-year-old white male with past medical history of schizophrenia, alcohol abuse, and was on the psych floor, he fell, and was transferred to the medical floor for further workup. Denies any neck pain or back pain, and some left wrist pain and called to evaluate the patient. CAT scan of the head was done, which was reported as negative. No bleed. ALLERGIES: NO KNOWN DRUG ALLERGY. HOME MEDICATION: Haldol and trazodone. REVIEW OF SYSTEMS: Ten-point review of systems was negative. PHYSICAL EXAMINATION NEUROLOGIC: The patient is more awake, alert, and orientated to self, not in distress. Cranial nerves II through XII were tested. Pupils reactive. EOM intact. Visual field full. No facial asymmetry. Tongue midline. Motor examination, moves all the extremities equally. Tone normal. Deep tendon reflexes 1+. Both plantars are downgoing. Sensory appears intact. Cerebellar gait deferred.. IMPRESSION: A 52-year-old white male who was transferred from psych floor to medical floor because of fall, and it was an unwitnessed fall. CAT scan of the head, cervical spine, thoracic spine, and lumbar spine were done, which are all no fracture and no bleed. The patient is having his dinner and not in pain. Workup in progress. Continue present management. We will follow up. Grady Osorio MD
--- NOTE | 2018-01-11 22:57 | PN ---
DATE: 01/11/2018 SUBJECTIVE: The patient was seen and examined at bedside on 01/11/2018, looking comfortable. No nausea, vomiting, or diarrhea. No hematuria, no hematochezia. Still feeling fatigued, tired, but shaky. When he is walking, not stable. No fever, no chills. No headache, no dizziness. No chest pain, no palpitation. PHYSICAL EXAMINATION: VITAL SIGNS: Temperature 98.7, pulse 50, respiratory rate is 19, blood pressure 100/67. HEENT: Head normocephalic, atraumatic. Eyes: PERRLA. Extraocular muscles intact. Conjunctivae clear. Nose patent. Mucous membrane moist. NECK: Supple. No carotid bruit. No JVD or thyromegaly. CHEST: Bilaterally symmetrical. HEART: S1, S2 positive. LUNGS: Clear to auscultation. ABDOMEN: Soft. Bowel sounds present. No organomegaly. EXTREMITIES: No edema, no cyanosis. NEUROLOGIC: The patient is awake, alert. Moving all 4 extremities. No focal deficit. MEDICATIONS: Trazodone, Motrin, Pepcid, Prozac, naltrexone, Seroquel, thiamine. LABORATORY DATA: We do not have recent labs today, but I reviewed old labs. ASSESSMENT AND PLAN: Mr. Sang Saucedo is a 52-year-old male with abnormal liver function tests, history of ethanol abuse, has history of fall, status post syncopal attack as per patient. The patient was transferred to medical floor. Psychiatrist is on the case, even neurologist is on the case. According to psychiatrist, the patient is severely depressed with psychotic features, alcohol use. Psych started Prozac, Seroquel will be restarted, trazodone was decreased. CAT scan of the head was done, reviewed by me. Gastrointestinal and deep venous thrombosis prophylaxes. Need good physical therapy and rehab for alcohol, want to go to [facility]. We will follow up. Gi Ewing MD
--- NOTE | 2018-01-12 13:07 | PN ---
DATE: 01/12/2018 SUBJECTIVE: The patient was transferred from the psychiatric inpatient unit, status post dizziness and fall. The patient is currently on third floor, psychiatric followup because the patient has history of schizophrenia. The patient has recent admission to the psych unit. Notes reviewed. Discussed with Dr. Stewart as well as nursing staff on the medical side. As per nursing staff, the patient has episodes of confusion, was looking for shoelaces, but obviously, there are no shoelaces, but the patient does not have any aggression or agitation. The patient was seen today. The patient presented to be alert. The patient seems to remember this policy writer typist. Majority of the answers are not related to the questions being asked. The patient presented to be mildly confused. The patient said that he is in [facility], was not able to believe that he is in [place]. The patient does not know what is the date today. PHYSICAL EXAMINATION: VITAL SIGNS: Reviewed. Temperature 97.8, pulse is 52, blood pressure 124/81, respirations 18, oxygen saturation is 96. MEDICATIONS: Reviewed. The patient is on Pepcid, Prozac, Motrin, ReVia, Seroquel 50 mg at the morning, thiamine 100 mg at the nighttime, trazodone 50. The patient seems to be compliant with the medication. Hematology and chemistry reviewed. Microbiology reviewed. MENTAL STATUS EXAMINATION: The patient appears to be alert, oriented in self, but not in place. The patient does not know what is the date today. Mood described as okay. Affect was constricted, but minimally reactive. Thought process, concrete. Thought content, the patient reported that his voices are "very light." The patient adamantly denied any thoughts of killing himself or others. Denied intents or plan. Insight and judgment seemed to be improving. Impulses are well controlled. IMPRESSION: Most likely, the patient is in delirium stage because the patient has alternation of consciousness and has periods of confusion. The patient has history of schizophrenia, alcohol use disorder. PLAN: Continue current management. Continue current medication. There are no acute psychiatric issues. The patient does not appear to be psychotic, does not appear to be agitated, does not appear to be depressed. The patient has episodes of confusion, which is related to the medical issues. Physical Therapy recommended subacute rehab while the patient was at the psychiatric inpatient unit. There is no need for the patient to go back to the psychiatric inpatient unit. This policy writer typist will follow up every other day. At present moment, the patient does not meet the criteria for psych admission. Should you have any questions give me a call back. Thank you very much for letting me participate in the care of your patient. July Jenkins MD
--- NOTE | 2018-01-12 15:34 | PN ---
DATE: 01/12/2018 AGE: A 52-year-old man. CHIEF COMPLAINT: Status post fall. SUBJECTIVE: Patient is seen and examined at bedtime. No nausea, no vomiting, no diarrhea, still feels fatigued and shaky, but otherwise no headaches, no changes in sensation or smell. Awaiting for PT eval to walk the patient around. Psych is on board for underlying schizophrenia or behavior disturbance and depression. PAST MEDICAL HISTORY: History of schizophrenia, depression and alcohol abuse. FAMILY HISTORY: Noncontributory. REVIEW OF SYSTEMS: A 14-point review of systems as per the HPI. ALLERGIES: NO KNOWN DRUG ALLERGIES. SOCIAL HISTORY: ETOH abuse, no elicit drug use, occasional smoker. MEDICATIONS: Reviewed by nurse's reconciliation sheet. LABS: No new labs done today. PHYSICAL EXAMINATION: VITAL SIGNS: Temperature 97.8, pulse rate 58, blood pressure 124/81, respiratory rate 18, oxygen saturation 96% by room air. GENERAL: Patient is seen in bed in no acute distress, flat affect. HEENT: Head is atraumatic, normocephalic. PERRLA. Extraocular muscles intact. NECK: Supple. No JVD. No adenopathy noted. LUNGS: Clear to auscultation. No adventitious sounds. HEART: S1 and S2. Normal rate and rhythm. No murmurs, rubs or gallops. ABDOMEN: Soft, nontender and nondistended. Bowel sounds are present. EXTREMITIES: No clubbing. No cyanosis. Peripheral pulses 2+ felt bilaterally. NEUROLOGIC: The patient is alert and oriented to person and place. Recall after 5 minutes, 2 out of 3. Poor attention span, slow thought process. Affect was constricted, minimally reactive. No thoughts of hallucinations. Insight and judgment seemed to be improving. Pulses are well controlled. Speech is fluent without any errors. Cranial nerves II through XII intact. Motor: Moves all extremities equally. No pronator drift seen. Sensory: Decreased light touch and pinprick up to the ankles bilaterally. Decreased vibration of the toes. DTRs are 2+ throughout and 1 at both knees and ankles. Coordination: [id number] intact. Gait is deferred for now. LABORATORIES: Reviewed. IMPRESSION: Recent fall status post dizziness and recent fall could be secondary to underlying adenopathy, given that he has a history of chronic alcoholic and possibly medication effects when he was on the psychiatric floor. At this time recommended: 1. Avoid oversedative medications, reduced to trazodone which has already been reduced by Psych. 2. Continue with Seroquel 50 mg each morning and 100 mg at bedtime for agitation and depression. 3. Monitor electrolytes and correct accordingly. 4. PT/OT assessment and recommend physical therapy and gait training. Thank you for this followup. Anand Osorio MD
--- NOTE | 2018-01-12 23:35 | PN ---
DATE: 01/12/2018 SUBJECTIVE: The patient was seen and examined on bedside on 01/12/2018. I am doing progress note for 01/12/2018. Looking comfortable. No nausea, vomiting, diarrhea. No hematuria or hematochezia. No swelling of the legs. No chest pain. No palpitation. No headache. No dizziness. Still feeling fatigued and tired. History of syncopal attack. History of schizophrenia, was admitted on the Psych floor. PHYSICAL EXAMINATION: VITAL SIGNS: Temperature 97.8, pulse 58, blood pressure 125/81, respiratory rate 18, oxygen saturation 96% on room air. HEENT: Head normocephalic, atraumatic. Eyes PERRLA. Extraocular muscles intact. Conjunctivae clear. Nose patent. Mucous membrane moist. NECK: Supple. No carotid bruit. No JVD or thyromegaly. CHEST: Bilaterally symmetrical. HEART: S1 and S2 positive. LUNGS: Clear to auscultation. ABDOMEN: Soft. Bowel sounds positive. No organomegaly. EXTREMITIES: No edema. No cyanosis. NEUROLOGICAL: The patient is awake and alert. Moving all 4 extremities. No focal deficits. MEDICATIONS: Reviewed by me. LABORATORY DATA: Labs reviewed by me. ASSESSMENT AND PLAN: Mr. Sang Saucedo, history of recent fall, status post dizziness. According to the patient, may be history of syncopal attack. Chronic alcohol use, possibly medication effects. When he was on the Psych floor, he had syncopal attack. Neurology saw the patient. Advised try to avoid overdose of medications. Reduce the trazodone, which has already been reduced by Psychiatry. Continue Seroquel. Measure electrolytes. Out of bed, physical therapy. History schizophrenia and depression, abnormal liver function test. Trying to get rehab for the patient. Discussion done with social workers. Repeat lab. We will follow up. Gi Ewing MD
[2018-01-13 11:34] LABS: HEMOGLOBIN 14.9 g/dL (14.0-18.0); MEAN CORPUSCULAR HEMOGLOBIN 32.8 pg (25.0-35.0); MEAN CORPUSCULAR HGB CONC 34.2 g/dl (31.0-37.0); MEAN PLATELET VOLUME 11.7 fl (7.0-11.0); RBC 4.54 10^6/uL (3.5-6.1); RED CELL DISTRIBUTION WIDTH 13.6 % (11.5-14.5); WHITE BLOOD COUNT 7.2 10^3/uL (4.5-11.0)
[2018-01-13 11:41] LABS: ALB/GLOB RATIO 1.1 (1.1-1.8); ALBUMIN 3.9 g/dL (3.0-4.8); ALT/SGPT 47 U/L (7-56); AST/SGOT 32 U/L (17-59); BLOOD UREA NITROGEN 15 mg/dL (7-21); CALCIUM 9.3 mg/dL (8.4-10.5); GFR NON-AFRICAN AMERICAN > 60
[2018-01-13 16:29] LABS: PH,URINE 6.5 (4.7-8.0); URINE BILIRUBIN NEGATIVE (NEGATIVE); URINE BLOOD NEGATIVE (NEGATIVE); URINE GLUCOSE (UA) NEGATIVE (NEGATIVE); URINE LEUKOCYTE ESTERASE NEGATIVE Leu/uL (NEGATIVE); URINE PROTEIN NEGATIVE mg/dL (<30 mg/dL)
[2018-01-13 16:30] LABS: URINE APPEARANCE CLEAR (CLEAR); URINE COLOR YELLOW (YELLOW)
--- NOTE | 2018-01-14 03:22 | PN ---
DATE: 01/13/2018 SUBJECTIVE: The patient is a 52-year-old male. The patient was seen and examined at the bedside on 01/13/2018. The patient is looking comfortable. No nausea, vomiting, or diarrhea. No hematuria or hematochezia. No swelling of the legs. No chest pain. No palpitation. No headache. No dizziness. No fevers. No chills. PHYSICAL EXAMINATION VITAL SIGNS: Temperature 98.8, pulse 53, blood pressure 115/67 and respiratory rate 20. HEENT: Head is normocephalic, atraumatic. Eyes: PERRLA. Extraocular muscles intact. Conjunctivae clear. Nose patent. Mucous membrane moist. NECK: Supple. No carotid bruit. No JVD or thyromegaly. CHEST: Bilaterally symmetrical. HEART: S1and S2 positive. LUNGS: Clear to auscultation. ABDOMEN: Soft. Bowel sounds present. No organomegaly. EXTREMITIES: No edema, no cyanosis. NEUROLOGIC: The patient is awake, alert. Moving all four extremities. No focal deficit. MEDICATIONS: Ativan, trazodone, Flomax, Motrin, Pepcid, Prozac, naltrexone, Seroquel, and vitamin B1. LABORATORY DATA: White blood cells 7.3, hemoglobin 14.9, hematocrit 43.6 and platelets 162. Sodium 138, potassium 4.3, BUN 15, creatinine 0.9. Glucose 90. ASSESSMENT AND PLAN: Mr. Sang Saucedo is a 52-year-old male with history of abnormal liver function test, trending down; history of schizophrenia; history of fall; status post dizziness; history of syncopal attack; chronic alcohol abuse, possibly medication effect; fatigued; tired; gastroesophageal reflux disease; and dyspepsia. The patient was in the Psych Department. He is getting physical therapy. Continue Seroquel. f/u electrolytes, out of bed, physical therapy. We will follow up. Gi Ewing MD [facility]
--- NOTE | 2018-01-14 16:31 | PN ---
DATE: 01/14/2018 FOLLOWUP NOTE SUBJECTIVE: The patient was followed up today. The patient presented much better to compare with the day before yesterday. The patient reported that voices are much less. The patient reported no suicidal or homicidal ideations. The patient reported that his sleep is better. Vital signs reviewed. Temperature 98.3, pulse is 57, blood pressure 93/64, respirations 20, oxygen saturations 96. Medications reviewed. The patient is on Pepcid; Prozac; Motrin; Ativan; naltrexone; Seroquel 50 mg at the morning time, 100 mg at the nighttime; Flomax; thiamine; trazodone. Labs reviewed. Most recent was from yesterday. MENTAL STATUS EXAMINATION: The patient presented to be alert and oriented, pleasant, cooperative. No agitation or aggression. Fair eye contact. Mood described, I feel better. Affect was constricted, but reactive. Mood congruent. Thought process more organized, goal directed, but concrete. Thought content, the patient reported auditory hallucinations, but not command-type and "it is much less". The patient denied thoughts of harming himself or others. Denied intents or plan. Insight and judgment seems to be improving. Impulses are well controlled. IMPRESSION: As per history, schizophrenia versus schizoaffective disorder, alcohol use disorder. PLAN: Continue current management. Continue current medication. The patient was seen by neurologist. We will continue current medication set. The patient needs to be followed up with psychiatrist at subacute rehab within 72 hours after admission. Meanwhile, the patient pose no imminent danger to self or others. This credit underwriter will sign off. Should you have any questions, give me a call back. July Jenkins MD
[2018-01-14 17:28] VITALS: O2SAT 98
--- NOTE | 2018-01-15 03:18 | PN ---
DATE: 01/14/2018 SUBJECTIVE: Patient is a 52-year-old male. Patient was seen and examined at the bedside on 01/14/2018. He is looking comfortable, improved a lot as compared to yesterday. Tremors are better. No fever. No chills. No nausea, vomiting, diarrhea. No hematuria, hematochezia. No swelling of the legs. No chest pain. No palpitation. PHYSICAL EXAMINATION: VITAL SIGNS: Temperature 98.2, pulse is 58, blood pressure 100/60, respiratory rate 20. HEENT: Head: Normocephalic, atraumatic. Eyes: PERRLA. Extraocular muscles are intact. Conjunctivae clear. Nose patent. Mucous membranes moist. NECK: Supple. No carotid bruits. No JVD or thyromegaly. CHEST: Bilaterally symmetrical. HEART: S1 and S2 positive. LUNGS: Clear to auscultation. ABDOMEN: Soft. Bowel sounds present. No organomegaly. EXTREMITIES: No edema. No cyanosis. NEUROLOGICAL: Patient is awake, alert, moving all four extremities. No focal deficits. MEDICATIONS: Ativan, trazodone, Flomax, Motrin, Pepcid, Prozac, naltrexone. LABORATORY DATA: We do not have recent labs today, but I reviewed old labs. ASSESSMENT AND PLAN: Mr. Sang Saucedo is a 52-year-old male, with history of abnormal liver function tests, got better; history of schizophrenia/schizoaffective order, alcohol abuse, tremors, noncompliance, gastroesophageal reflux disease, dyspepsia. No more suicidal or homicidal ideation. Patient has insomnia and now sleeping better. Benign prostatic hypertrophy, patient is on Flomax. Patient under the care of psychiatrist also. Continue current medications. Patient was seen by psychiatrist and neurologist. Gastrointestinal, deep venous thrombosis prophylaxis. Trying to get subacute rehabilitation. We will follow up. Out of bed, physical therapy. Gi Ewing MD
[2018-01-15 08:54] VITALS: BP 102/71; PULSE 56; RESP 18; TEMP 97.8
== END 2018-01-15 11:10 | DRG 315 ==
LOC: ED 19:42 → ERH 23:24 → 3RNO 01-10 00:08 → OBSVTOIN 01-11 20:54 → 3RSO 01-12 09:44
PROVIDERS: ADMIT Internal Medicine; ATTEND Internal Medicine
DX: I95.9 Hypotension, unspecified (principal); F32.3 Major depressive disorder, single episode, severe with psychotic features; F20.9 Schizophrenia, unspecified; K21.9 Gastro-esophageal reflux disease without esophagitis; G47.00 Insomnia, unspecified; N40.0 Benign prostatic hyperplasia without lower urinary tract symptoms; Z91.19 Patient's noncompliance with other medical treatment and regimen; Z87.891 Personal history of nicotine dependence; Z91.81 History of falling